=== PATIENT | female | born 1945 | race Caucasian/White ===

== ENCOUNTER → 2016-07-13 | Outpatient (CLI) | payer BC ==
[~2016-07-13] MED LIST: ALBU18002 INH; ALBU1AER9 INH; BRIM0.1S OPL; CALC1CHW57; CALC500C3 PO; CALC8.5C PO; CLR10 PO; DORZ1SOL6 OPL; MULT-240 PO; TRAV0.00 OPB; VALA500T60 PO; VGMOPS OPL; VIACTIV; ZOLE5INJ; [UNRECOGNIZED DRUG - CODE] OPL
--- NOTE | 2016-07-13 16:01 | MAMMOGRAPHY REPORT ---
BILATERAL DIGITAL SCREENING MAMMOGRAM WITH CAD: 07/13/2016 CLINICAL HISTORY: Routine screening. Patient has no complaints. TECHNIQUE: Bilateral CC, MLO, repeat left CC and right nipple in profile views were obtained. Curren t study was also evaluated with a Computer Aided Detection (CAD) system. COMPARISON: Comparison is made to exams dated: 07/09/2015 mammogram, 07/04/2014 mammogram, 06/30/2013 m ammogram, 07/13/2012 mammogram, 06/29/2012 mammogram, and 06/29/2011 mammogram - [facility] nter. BREAST COMPOSITION: There are scattered areas of fibroglandular density in both breasts. FINDINGS: There are mild vascular calcifications in the breasts. No suspicious mass, architectural d istortion or cluster of microcalcifications is seen. IMPRESSION: ACR BI-RADS CATEGORY 1: NEGATIVE There is no mammographic evidence of malignancy. A 1 year screening mammogram is recommended. The pa tient will receive written notification of the results. Approximately 10% of breast cancers are not detected with mammography. A negative mammographic report should not delay biopsy if a clinically suggestive mass is present. Steff Segundo M.D. ay/:07/13/2016 13:53:39 [facility] [employer] [employer]: Leelee VENTURA(Lory)(Jackson)([place]), [facility] letter sent: Normal 1/2 BI-RADS Code: ACR BI-RADS Category 1: Negative
== END | disposition home or self-care (01) ==
LOC: C.MAMM 10:48
PROVIDERS: ATTEND Obstetrics & Gynecology
DX: Z12.31 Encounter for screening mammogram for malignant neoplasm of breast (principal)

== ENCOUNTER → 2016-09-14 | Outpatient (CLI) | payer BC ==
[2016-09-14 13:00] LABS: BASO % 0.3 %; BASO ABS # 0.02 K/uL (0-0.2); COMPLETE YES; EOS % 1.3 %; HEMATOCRIT 44.1 % (37-47); IG% 0.1 %; LYMPH % 27.7 %; LYMPH ABS # 2.14 K/uL (1.2-3.4); MEAN CELL VOLUME 96.7 fL (80-100); MEAN CORPUSCULAR HGB CONC 33.1 g/dl (32-36); MEAN PLATELET VOLUME 10.4 fL (7.4-10.4); MONO % 8.8 %; NEUT % 61.8 %; PLATELET COUNT 207 K/uL (130-400); RED BLOOD COUNT 4.56 M/uL (4.2-5.4); WHITE BLOOD COUNT 7.73 K/uL (4.8-10.8)
[2016-09-14 13:21] LABS: BLOOD UREA NITROGEN 20 mg/dl (7-18); CALCIUM 9.9 mg/dl (8.5-10.1); CARBON DIOXIDE 29 mmol/L (21-32); CHLORIDE 104 mmol/L (98-107); CREATININE 0.93 mg/dl (0.60-1.20); GLUCOSE 88 mg/dl (70-99); POTASSIUM 4.2 mmol/L (3.5-5.1); SODIUM 140 mmol/L (136-145)
[2016-09-14 13:31] LABS: CHOLESTEROL 216 mg/dl (0-200); CHOLESTEROL/HDL RATIO 3.4; HDL CHOLESTEROL 63 mg/dl; LDL CHOLESTEROL CALCULATED 129 mg/dl; TRIGLYCERIDES 122 mg/dl (0-150); VERY LOW DENSITY LIPOPROT CALC 24 mg/dl
== END | disposition home or self-care (01) ==
LOC: C.LAB 11:58
PROVIDERS: ATTEND Internal Medicine Geriatric Medicine
DX: M81.0 Age-related osteoporosis without current pathological fracture (principal); I10 Essential (primary) hypertension; J45.909 Unspecified asthma, uncomplicated; E78.5 Hyperlipidemia, unspecified; M19.90 Unspecified osteoarthritis, unspecified site

== ENCOUNTER → 2016-10-06 | Outpatient (CLI) | payer BC | END | disposition home or self-care (01) | LOC: C.MAMM 14:07 | PROVIDERS: ATTEND Internal Medicine Geriatric Medicine | DX: M81.0 Age-related osteoporosis without current pathological fracture (principal) ==

== ENCOUNTER → 2016-11-06 | Outpatient (CLI) | payer BC ==
[~2016-11-06] MED LIST changes: -ALBU18002 INH; -VIACTIV
[2016-11-06 13:48] LABS: AST/SGOT 16 U/L (15-37); BLOOD UREA NITROGEN 21 mg/dl (7-18); BUN/CREATININE RATIO 24.8 (10-20); CALCIUM 9.2 mg/dl (8.5-10.1); CARBON DIOXIDE 31 mmol/L (21-32); CHLORIDE 106 mmol/L (98-107); CREATININE 0.84 mg/dl (0.60-1.20); GLUCOSE 81 mg/dl (70-99); POTASSIUM 4.2 mmol/L (3.5-5.1); SODIUM 141 mmol/L (136-145)
[2016-11-06 13:52] LABS: ALB/GLOB RATIO 1.1 (0.9-2); ALKALINE PHOSPHATASE 64 U/L (45-117); ALT/SGPT 20 U/L (12-78)
== END | disposition home or self-care (01) ==
LOC: C.LAB 12:14
PROVIDERS: ATTEND Internal Medicine Geriatric Medicine
DX: I10 Essential (primary) hypertension (principal)

== ENCOUNTER → 2016-11-17 | Day surgery (SDC) | payer BC ==
[~2016-11-17] VITALS: Ht 152.4 cm; Wt 45.5 kg
[~2016-11-17] MED LIST changes: +ACETAMINOPHEN 500 MG TAB PO ONE; +ACETAMINOPHEN 500 MG TAB PO SCH; +ALBU18002 INH; +VIACTIV; +ZOLEDRONIC ACID INJ 5 MG in EMPTY BAG 0 ML IV SCH
[2016-11-17 08:46] VITALS: BP 169/79; PULSE 70; TEMP 36.5; O2SAT 100; Ht 152.4 cm; Wt 45.5 kg
== END | disposition home or self-care (01) ==
LOC: C.MTU 08:31
PROVIDERS: ATTEND Internal Medicine Geriatric Medicine
DX: M81.0 Age-related osteoporosis without current pathological fracture (principal)

== ENCOUNTER → 2017-03-29 | Outpatient (CLI) | payer BC ==
[~2017-03-29] MED LIST changes: -ACETAMINOPHEN 500 MG TAB PO ONE; -ACETAMINOPHEN 500 MG TAB PO SCH; -ZOLEDRONIC ACID INJ 5 MG in EMPTY BAG 0 ML IV SCH
--- NOTE | 2017-03-29 14:58 | DIAGNOSTIC IMAGING REPORT ---
LUMBAR SPINE 5 VIEWS HISTORY: M[age] Low back [id number] COMPARISON: Lumbar spine 09/17/2011. FINDINGS: There is no fracture. 4 mm of anterolisthesis of L3 on L4 and 11 mm of anterolisthesis of L4 on L5. These have progressed. Severe disc space narrowing at L3-L4 and L4-L5. Moderate facet osteoarthritis within the lower lumbar spine. The sacrum appears intact. IMPRESSION: Progressive anterolisthesis and disc space narrowing at L3-L4 and L4-L5. No fractures within the lumbar spine. Electronically signed by: Yung Brannon M.D. 03/29/2017 2:57 PM Dictated Date/Time: 03/29/2017 2:54 PM
--- NOTE | 2017-03-29 14:59 | DIAGNOSTIC IMAGING REPORT ---
SI JOINTS 3 OR MORE VIEWS CLINICAL HISTORY: M54.5 Low back [id number] COMPARISON STUDY: No previous studies for comparison. FINDINGS: There is no evidence of SI joint fusion. There are no erosive changes. No fractures are visualized. Degenerative changes are present within the lower lumbar spine IMPRESSION: 1. No conventional radiographic evidence of sacroiliitis Electronically signed by: Sedrick Charles M.D. 03/29/2017 2:58 PM Dictated Date/Time: 03/29/2017 2:56 PM
== END | disposition home or self-care (01) ==
LOC: C.RADBC 14:13
PROVIDERS: ATTEND Internal Medicine Geriatric Medicine
DX: M54.5 Low back pain (principal)

== ENCOUNTER → 2017-04-27 | Outpatient (CLI) | payer BC | END | disposition home or self-care (01) | LOC: C.LAB1850 11:10 | PROVIDERS: ATTEND Internal Medicine Rheumatology | DX: M81.0 Age-related osteoporosis without current pathological fracture (principal); E61.8 Deficiency of other specified nutrient elements; E55.9 Vitamin D deficiency, unspecified ==

== ENCOUNTER → 2017-09-01 | Outpatient (CLI) | payer BC ==
--- NOTE | 2017-09-15 12:20 | CODING QUERY NO DIAGNOSIS ---
TREATMENT RENDERED WITHOUT A DIAGNOSIS To promote full compliance with coding requirements relating to patient care, physician participation is requested in all cases of patient monitor uncertainty. Please assist us with providing a diagnosis/symptom for the test(s) below: A diagnosis/symptom was not documented on your Order. A valid diagnosis/symptom is required to bill all insurances. Please remember that we are unable to code a diagnosis of rule out, probable, possible, questionable, or suspected. Tests that require a diagnosis: DOS: 09/01/17 * LEFT BUCCAL MUCOSA EXCISION DIAGNOSIS: Provider Signature: Date: Thank you Chrissie Miller [employer] Information Management Once completed, please kindly fax back to [phone] For questions please call [phone]
== END | disposition home or self-care (01) ==
LOC: C.PATHSPEC 14:52
PROVIDERS: ATTEND Dentist Oral and Maxillofacial Pathology
DX: D10.39 Benign neoplasm of other parts of mouth (principal)

== ENCOUNTER 2023-09-04 13:10 | Observation (INO) ==
[2023-09-04 14:07] LABS: Appearance Urine Clear (Clear); Bilirubin Urine Negative (Negative); Blood Urine Negative (Negative); Color Urine Yellow; Glucose Urine UA Negative (Negative); Ketones Urine Negative (Negative); Leukocyte Esterase Urine Negative (Negative); Nitrite Urine Negative (Negative); Protein Urine Negative (Negative); Specific Gravity Urine 1.019 (1.000-1.030); Urobilinogen Urine Negative (Negative); pH Urine 5.5 (4.5-7.5)
--- NOTE | 2023-09-04 14:08 | XRay Report ---
XR chest 1V portable HISTORY: 78 years-old Female weakness COMPARISON: 06/07/2011 TECHNIQUE: AP view of the chest FINDINGS: Calcified granulomas in the left lung. Heart is normal in size. Lungs are generally clear. No pneumot horax or pleural effusion. The bones appear grossly intact. IMPRESSION: No acute process. ACT 112: Negative or not required by law. The above report was generated using voice recognition software. It may contain grammatical, syntax o r spelling errors. Electronically signed by: Cesar Valentine M.D. 09/04/2023 2:07 PM
[2023-09-04 14:15] LABS: Basophils # (auto) 0.02 K/uL (0.00-0.20); Basophils % (auto) 0.2 %; Eosinophils # (auto) 0.01 K/uL (0.00-0.50); Eosinophils % (auto) 0.1 %; Hematocrit (blood only) 43.5 % (37.0-47.0); Hemoglobin 14.3 g/dl (12.0-16.0); Immature Granulocytes # (auto) 0.06 K/uL (0.01-0.20); Immature Granulocytes % (auto) 0.5 %; Lymphocytes # (auto) 1.33 K/uL (1.20-3.40); Mean Corpuscular Hemoglobin 31.2 pg (25.0-34.0); Mean Corpuscular Hgb Conc 32.9 g/dL (32.0-36.0); Mean Corpuscular Volume 94.8 fL (80.0-100.0); Monocytes # (auto) 0.76 K/uL (0.11-0.59); Monocytes % (auto) 6.3 %; Neutrophils # (auto) 9.88 K/uL (1.40-6.50); Neutrophils % (auto) 81.9 %; Platelet Count 227 K/uL (130-400); RDW Coefficient of Variation 12.7 % (11.5-14.5); RDW Standard Deviation 44.6 fL (36.4-46.3); Red Blood Count 4.59 M/uL (4.20-5.40); White Blood Count 12.06 K/ul (4.8-10.8)
[2023-09-04 14:26] LABS: Alanine Aminotransferase 14 U/L (7-52); Albumin Globulin Ratio 1.5 (0.9-2); Albumin Level 4.4 gm/dl (3.4-5.0); Alkaline Phosphatase 51 U/L (34-104); Anion Gap 7 (3-11); Aspartate Aminotransferase 20 U/L (13-39); BUN Creatinine Ratio 29.9 (10-20); Bilirubin,Total 0.4 mg/dl (0.2-1.0); Blood Urea Nitrogen 23 mg/dl (6-23); Calcium 9.7 mg/dl (8.6-10.3); Carbon Dioxide 28 mmol/L (21-32); Chloride 105 mmol/L (98-107); Creatinine Clr Calc Pharmacy 39.7 ml/min; Est GFR (African American) 84.5 ml/min; Est GFR (Non-African American) 72.9 ml/min; Globulin 2.9 gm/dl (2.5-4.0); Glucose 124 mg/dl (70-99(Fasting)); Magnesium 2.1 mg/dl (1.7-2.4); Sodium 140 mmol/L (136-145); Total Protein 7.3 gm/dl (6.0-8.3)
[2023-09-04 14:32] LABS: Troponin I High Sensitivity 7.9 pg/ml (0-14)
--- NOTE | 2023-09-04 14:38 | CT Scan Report ---
CT head/brain wo con CLINICAL HISTORY: 78 years-old Female with AMS. Acutely altered mental status TECHNIQUE: Multiple axial CT images of the head were obtained without contrast. A dose lowering tech nique was utilized adhering to the principles of ALARA. CT DOSE: 547.75 mGy.cm COMPARISON: None. FINDINGS: No acute intracranial hemorrhage, midline shift, intracranial mass, hydrocephalus, territorial ischem ia or abnormal extra-axial collection. Involutional changes with chronic microvascular ischemic disea se. The calvarium is intact. The paranasal sinuses, mastoid air cells, and middle ear cavities are clear . IMPRESSION: No acute intracranial abnormality. ACT 112: Negative or not required by law. The above report was generated using voice recognition software. It may contain grammatical, syntax o r spelling errors. Electronically signed by: Cesar Valentine M.D. 09/04/2023 2:35 PM
[2023-09-04 14:41] LABS: Thyroid Stimulating Hormone 1.901 uIu/ml (0.300-4.500)
[2023-09-04 15:01] LABS: Influenza A virus by PCR Negative (Neg); Influenza B virus by PCR Negative (Neg); RSV by PCR Negative (Neg); SARS CoV2 RNA(COVID-19) Ceph NEGATIVE (Negative)
[2023-09-04] MEDS: SODIUM CHLORIDE 0.9% 1,000 ML IV SCH (15:45)
--- NOTE | 2023-09-04 17:11 | History & Physical Report ---
Date of Service September 04, 2023 Assessment & Plan (1) Confusion: (2) Amnesia: (3) Carpal tunnel syndrome, right: (4) Urinary retention: (5) Dyslipidemia: (6) Gastroesophageal reflux disease: Plan 78 y/o female with PMHx of HLD, carpal tunnel syndrome, urinary retention, osteo porosis, asthma, GERD, HSV suppression, glaucoma presenting with new onset confusion: Confusion: Overall unclear etiology for presenting sx, neurologically appears intact apart from anterograde amnesia-like sx Infectious etiology largely ruled out - WBC slightly elevated at 12, but CXR, UA, respiratory viral panel all negative, patient afebrile and asymptomatic. 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 Several family members at bedside, report that patient was supposed to meet up with family to go to [facility] but seemingly forgot. Daughter called patient [address] to her home - each time, the patient had forgotten the previous phone call. When family arrived at patient's house, she appeared normal apart from the forgetfulness - did not have any asymmetric weakness, no obvious motor or sensory deficits, no facial droop. Daughter had last seen patient on 09/01, at which time she was fine. Similarly, family sent numerous texts on Wednesday and received coherent responses. Overall, unclear exactly when sx started. At present, patient states that she felt like she was in a dream-like state, improved but still present, also has difficulty recounting the events of today, even after family has detailed the sequence of events multiple times. Patient has h/o HLD, states that total cholesterol is usually slightly over 200, has never been started on medication. Similarly, BP elevated in ED, though patient and family report well-established white coat HTN - home readings generally <140/90, patient does not take medication. Denies h/o diabetes. Denies cardiac hx or h/o arrhythmias. Denies h/o prior stroke. Patient is a former smoker but states that she quit close to 50 years ago. Presently, denies recent infection, denies fever/chills, denies SOB/CP, denies ALCAZAR/changes in vision. ED Course: CT head w/o contrast negative WBC 12, CXR negative, UA negative, respiratory viral panel negative Allergies Allergy/AdvReac Type Severity Reaction Status Date / Time chloramphenicol Allergy Intermediate swelling Verified 09/04/23 15:37 epinephrine Allergy Intermediate "makes me Verified 09/04/23 15:37 even more uptight, heart racing" fluticasone Allergy Intermediate "eyes got Verified 09/04/23 15:37 funny" salmeterol Allergy Intermediate "eyes got Verified 09/04/23 15:37 funny" Sulfa (Sulfonamide Allergy Intermediate yeast Verified 09/04/23 15:37 Antibiotics) infection latex Allergy Unknown Unknown Verified 09/04/23 15:37 pred forte AdvReac Unknown Unknown Uncoded 09/04/23 15:37 Home Medications Medication Instructions Recorded Confirmed Type calcium carbonate 500 mg-vitamin 1 tab PO QAM 11/14/18 09/04/23 History D3 2.5 mcg (100 unit) chewable tablet travoprost 0.004 % eye drops 1 drops OPB QPM 11/14/18 09/04/23 History valacyclovir 500 mg tablet 500 mg PO QAM 11/14/18 09/04/23 History Juice Plus 1 tab PO QPM 08/25/19 09/04/23 History Thera Tears 1 drp OPR BID PRN Dry Eyes 11/01/20 09/04/23 History calcium carbonate (Tums) 200 mg PO HS Acid Reflux 11/01/20 09/04/23 History fluorometholone 0.1 % eye 1 drp OPL QAM 11/01/20 09/04/23 History drops,suspension acetaminophen 500 mg tablet 500 mg PO HS 06/12/21 09/04/23 History (Acetaminophen Extra Strength) artificial tears(hypromellose) 0.3 1 drp ophthalmic (eye) TID PRN Dry 06/12/21 09/04/23 History % eye gel (Systane Gel) Eyes famotidine 20 mg tablet 20 mg PO QPM #120 tabs 02/09/23 09/04/23 Rx brimonidine 0.1 % eye drops 1 drp OPL [facility] 09/04/23 09/04/23 History (Alphagan P) Past Med/Surg History Problem List (Updated 09/04/23 @ 17:52 by Abhinav Weber DO) Amnesia Confusion Carpal tunnel syndrome, right Difficulty urinating Microscopic hematuria Urinary symptom or sign Urge incontinence Urinary retention Hypertension (Acute) Dyslipidemia (Acute) Osteoporosis with fracture (Acute) Followed by Dr. Beltran, Last Dexa Gastroesophageal reflux disease (Acute) Asthma (Acute) inhaler prn Medical History History of colon polyps Osteoarthritis Basal cell carcinoma of upper lip Blindness of left eye History of Mohs micrographic surgery for skin cancer Asthma Dyslipidemia Gastroesophageal reflux disease Glaucoma Hypertension Osteoporosis with fracture Vitamin D deficiency Surgical History History of left breast biopsy History of colonoscopy with polypectomy (~10/2019) History of oral surgery History of wisdom tooth extraction History of eye surgery History of left cataract extraction History of automated lamellar keratoplasty History of tooth extraction History of tonsillectomy and adenoidectomy Family History Mother Pancreatic cancer Father Stomach cancer Aunt Breast cancer Other No family history of adverse response to anesthesia Denies family history of Ovarian cancer Prostate cancer Myocardial infarction Colorectal cancer Social History Smoking Status: Former smoker Tobacco Type: Cigarettes Age Started Using Tobacco: 14; Age Quit Using Tobacco: 28; packs per day: 1; Second Hand Exposure: No (father smoked); Do You Dip or Chew Tobacco: No; Hx Alcohol Use: No Hx Substance Use: No Preferred Language: Japanese Communication Ability: Effective Visual Impairment: Limited Hearing Ability: Normal 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 Beliefs That Will Affect Care: None marital status: / Current Living Situation: Alone current occupational status: retired How many Children do You have: 2 Feels Safe at Home: Yes Childhood Exposure to Second-Hand Smoke: Yes caffeine: Yes (drinks coffee in mornings and sometimes tea ) Dental Care, Regularly: Yes Physical Activity Frequency: 1-2 Times per Week Physical Activity Frequency Comment: walks when she can Seatbelt Use: always Sunscreen Use: Yes Assistive Devices: Denture - Upper, Denture - Lower and Glasses Review of Systems Review of Systems: as per HPI Physical Exam Physical Exam: General: Alert and oriented. No acute distress Cardiac: Regular rate and rhythm, no murmurs appreciated Respiratory: Lungs clear to auscultation bilaterally, No increased work of breathing Abdominal: Soft, non-tender, non-distended. Bowel sounds present. Extremities: No lower extremity edema, calves non-tender bilaterally Neuro: AOx3, CN II-XII grossly intact, sensation and strength preserved and symmetrical bilaterally, speech comprehension and articulation WNL, only difficulty is recounting the events of the day leading up to admission. Remote memory preserved. Results & Data Results & Data Vital Signs (Past 12 Hours) Vital Signs Temp Pulse Pulse Resp BP BP Pulse Ox 09/04/23 16:36 87 19 98 09/04/23 16:30 175/102 H 09/04/23 16:03 83 22 97 09/04/23 16:00 163/98 H 09/04/23 15:54 79 22 146/89 H 97 09/04/23 14:15 78 18 141/83 H 98 09/04/23 14:08 80 18 98 09/04/23 14:07 09/04/23 13:46 90 09/04/23 13:20 36.6 C 99 H 18 169/77 H 98 O2 Del Method O2 Flow Rate FiO2 09/04/23 16:36 Room Air 09/04/23 16:30 09/04/23 16:03 Room Air 09/04/23 16:00 09/04/23 15:54 Room Air 09/04/23 14:15 Room Air 09/04/23 14:08 Room Air 09/04/23 14:07 Room Air 0 98 09/04/23 13:46 09/04/23 13:20 Room Air Supervising Physician Co-Signing Physician Notes Attending Physician Supervision Note: I independently interviewed and examined the patient and verified the guardado history and physical, reviewed labs and image studies and agree with findings and care plan noted above. Period of amnesia this am. Has h/o hypertensive responses in doctors office. BP in ED 170s. Exam normal in ED. Negative work up so far in ED. Will evaluate further with MRI, CTA head and neck, echo, TSH, b12, -Allow BP to come down slowly. -Reassess in am. Resident Activity Tracking Resident Involvement: Resident Care Provided Care Provided: Adult [facility]
[2023-09-04] MEDS: OPTIRAY 320 125ml IV ONE (18:01)
--- NOTE | 2023-09-04 18:18 | CT Scan Report ---
CT angio head w con, CT angio neck with con CLINICAL HISTORY: 78 years-old Female with stroke r/o. Acute stroke like symptoms COMPARISON STUDY: Head CT same day TECHNIQUE: Following the IV administration of 118 cc of Optiray, CT angiogram of the head and neck wa s performed from the skull base to the vertex. Images are reviewed in the axial, sagittal, and arboleda l planes. 3-D MIPS images are created and assessed. IV contrast was administered without complication . All measurements were obtained according to NASCET criteria. A dose lowering technique was utilized adhering to the principles of ALARA. CT DOSE: 371.88 mGy.cm FINDINGS: CT ANGIOGRAM OF THE HEAD AND NECK: Patent common and internal carotid arteries. The bilateral anterior and middle cerebral arteries are also patent. The vertebrobasilar system and posterior cerebral arteries are widely patent. There is n o aneurysm, high-grade stenosis, or proximal branch occlusion identified. Dural sinuses appear patent . Biapical pleural-parenchymal scarring. Pulmonary emphysema. No pneumothorax. Calcified granuloma of t he left upper lobe. Heterogeneous thyroid. Degenerative changes of the spine. IMPRESSION: Unremarkable CTA of the head and neck ACT 112: Negative or not required by law. The above report was generated using voice recognition software. It may contain grammatical, syntax o r spelling errors. Electronically signed by: Cesar Valentine M.D. 09/04/2023 6:15 PM
[2023-09-04] MEDS ORDERED: POLYETHYLENE (MIRALAX) 17 GM PACK PO PRN (18:42)
[2023-09-04] MEDS ORDERED: ALUMINUM/MAGNESIUM SUSP 30 ML UDC PO PRN (18:42)
[2023-09-04] MEDS ORDERED: MELATONIN 3 MG TAB PO PRN (18:42)
[2023-09-04] MEDS ORDERED: ARTIFICIAL TEARS OP PRN (18:49)
--- NOTE | 2023-09-04 19:01 | Magnetic Resonance Report ---
MR brain wo con HISTORY: 78 years-old Female stroke r/o acute strokelike symptoms COMPARISON: Head CT of same day TECHNIQUE: Multiplanar multisequence MRI of the brain was obtained without IV contrast. FINDINGS: No restricted diffusion to suggest acute or subacute infarct. Midline structures appear unremarkable. Degenerative changes of the imaged cervical spine. No acute intracranial hemorrhage, midline shift, abnormal extra-axial collection, hydrocephalus or intra-axial mass. Mildly motion degraded exam. Invo lutional changes with moderate T2/FLAIR hyperintense foci throughout the white matter. Cerebral venous sinuses and major arterial flow voids appear patent. Skull, orbits and soft tissues a re unremarkable. Left-sided lens repair. Mastoid air cells are clear. IMPRESSION: 1. No acute intracranial abnormality. No acute or subacute infarct. 2. Involutional changes with chronic microvascular ischemic disease. ACT 112: Negative or not required by law. The above report was generated using voice recognition software. It may contain grammatical, syntax o r spelling errors. Electronically signed by: Cesar Valentine M.D. 09/04/2023 6:58 PM
--- NOTE | 2023-09-04 20:30 | Electrocardiogram Report ---
Test Reason : Blood Pressure : / mmHG Vent. Rate : 085 BPM Atrial Rate : 085 BPM P-R Int : 114 ms QRS Dur : 082 ms QT Int : 358 ms P-R-T Axes : 069 -55 064 degrees QTc Int : 426 ms Normal sinus rhythm Possible Left atrial enlargement Left anterior fascicular block Abnormal ECG When compared with ECG of 07-JUN-2011 22:42, No significant change was found Confirmed by Mike Monroy ([id number]) on 09/04/2023 8:30:19 PM Referred By: REFERRED SELF Confirmed By:Mike Monroy
[2023-09-04] MEDS: TRAVOPROST Z 0.004% OPH SOLN 2.5 ML BTL OPB SCH (21:00)
[2023-09-04] MEDS ORDERED: NON-FORMULARY PATIENT'S OWN MED SCH (21:00)
[2023-09-04] MEDS: FAMOTIDINE 20 MG TAB PO SCH (21:00)
[2023-09-04] MEDS: BRIMONIDINE TAR OPL SCH (21:00)
[2023-09-04 23:16] LABS: C Reactive Protein < 0.50 mg/dl (0-0.5)
[2023-09-05 07:30] LABS: Estimated Average Glucose 117 mg/dl; Hemoglobin A1C 5.7 % (4.5-5.6)
[2023-09-05 07:33] LABS: Hematocrit (blood only) 43.5 % (37.0-47.0); Hemoglobin 14.3 g/dl (12.0-16.0); Mean Corpuscular Hemoglobin 31.1 pg (25.0-34.0); Mean Corpuscular Hgb Conc 32.9 g/dL (32.0-36.0); Mean Corpuscular Volume 94.6 fL (80.0-100.0); Mean Platelet Volume 10.1 fL (9.4-12.4); Platelet Count 220 K/uL (130-400); RDW Coefficient of Variation 12.9 % (11.5-14.5); RDW Standard Deviation 44.7 fL (36.4-46.3); White Blood Count 8.48 K/ul (4.8-10.8)
[2023-09-05] MEDS: valACYclovir HCL 500 MG TABLET PO SCH (08:49)
[2023-09-05] MEDS: ENOXAPARIN INJ 40 MG/0.4 ML SYR SQ SCH (08:50)
[2023-09-05] MEDS: OPTH OPL SCH (08:50)
[2023-09-05] MEDS: FLUOROMETHOLONE 0.1% OPL SCH (08:50)
[2023-09-05] MEDS ORDERED: NON-FORMULARY PATIENT'S OWN MED SCH (09:00)
--- NOTE | 2023-09-05 09:30 | Emergency Department Note ---
Impression & Plan Acute confusion, Memory changes ED Provider Note CHIEF COMPLAINT:AMS HISTORY OF PRESENT ILLNESS: This 78 yo female patient with PMH of UTI, dyslipidemia, osteoporosis, GERD and asthma presents to the emergency department with complaints of confusion. According to the patient's daughter, she was supposed to come to her home this morning at around 11 AM. They had plans to go to a local amusement park with family for a picnic. When the patient did not arrive, she called the patient who had no recollection of their plans. She stated she felt as though she was "in another world." Daughter drove to the patient's home and called her several times along the way. She was not able to remember one conversation to the other. Patient was uncertain if she had eaten or taken her medication's this morning. She denies any falls or head injuries. She denies any recent illnesses including urinary symptoms. REVIEW OF SYSTEMS: A review of systems was performed with positives and pertinent negatives listed in the history of present illness. 10 systems were reviewed and are otherwise negative. ALLERGIES: see below MEDICATIONS: see below PMH: see below SOCIAL HISTORY: see below DDx: TIA, seizure, stroke, infectious ideology, metabolic encephalopathy, toxic logic effect among others. PHYSICAL EXAM: Vital signs reviewed. General: Well-appearing 78 yo female, in no significant distress. HEENT: No scleral icterus, PERRLA, neck supple. Atraumatic. MMM. Cardiovascular: Regular rate and rhythm, no extra sounds. Pulmonary: Clear to auscultation bilaterally, normal work of breathing. Abdomen: Soft, nontender, nondistended, positive bowel sounds. Musculoskeletal: Atraumatic, no peripheral edema. Neurologic: Patient awake alert and oriented x 3, speech is clear. Follows commands, equals strengthen all four extremities. Negative pronator drift, intact finger to nose. 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 IV access was obtained in laboratory drawn. The patient was placed on the computer systems security administrator noted to be in a normal sinus rhythm. Patient's physical exam findings are reassuring, there is no stroke deficit at this time. The patient symptoms seem to be more of a global effect as opposed to neurologic process. Laboratory work reveals a slight ptosis at 12, UA is negative. Head CT is negative. EKG reveals no acute ischemic change. I suspect the patient may have suffered a TIA. Patient's case was discussed with the hospitalist service, who has agreed to evaluate the patient for admission and further management. MONITORING: An order for cardiac monitoring was placed and the patient is noted to be in a NSR at 83 beats per minute. RADIOLOGY: chest x-ray to my interpretation reveals no evidence of focal consolidation or failure. Otherwise referred to radiologist over read. Head CT per radiology is negative for acute intracranial process. EKG: to my interpretation reveals normal sinus rhythm 85 bpm. Left atrial enlargement, left interior fascicular, normal ST segments. No PVC, PVC. QTC 426 DISPOSITION: admission Past Med/Surg History Problem List (Updated 09/05/23 @ 09:43 by Judy Slater MD) Memory changes (Acute) Acute confusion (Acute) Amnesia Confusion Carpal tunnel syndrome, right Difficulty urinating Microscopic hematuria Urinary symptom or sign Urge incontinence Urinary retention Hypertension (Acute) Dyslipidemia (Acute) Osteoporosis with fracture (Acute) Followed by Dr. Beltran, Last Dexa Gastroesophageal reflux disease (Acute) Asthma (Acute) inhaler prn Medical History History of colon polyps Osteoarthritis Basal cell carcinoma of upper lip Blindness of left eye History of Mohs micrographic surgery for skin cancer Glaucoma left eye Vitamin D deficiency Surgical History History of left breast biopsy benign History of colonoscopy with polypectomy (~10/2019) repeat 5 yrs History of oral surgery dental implant History of wisdom tooth extraction History of eye surgery calcium deposit removal x3 left eye History of left cataract extraction History of automated lamellar keratoplasty ? pt states she cant remember but has had many left eye sx History of tooth extraction History of tonsillectomy and adenoidectomy Family History Mother Pancreatic cancer Father Stomach cancer Aunt Breast cancer Other No family history of adverse response to anesthesia Denies family history of Ovarian cancer Prostate cancer Myocardial infarction Colorectal cancer Social History Smoking Status: Former smoker Tobacco Type: Cigarettes Age Started Using Tobacco: 14; Age Quit Using Tobacco: 28; packs per day: 1; Second Hand Exposure: No (father smoked); Do You Dip or Chew Tobacco: No; Hx Alcohol Use: No Hx Substance Use: No Preferred Language: Swiss Communication Ability: Effective Visual Impairment: Limited Hearing Ability: Normal Side Show Entertainer Required: No Beliefs That Will Affect Care: None marital status: / Current Living Situation: Alone current occupational status: retired How many Children do You have: 2 Feels Safe at Home: Yes Safety Concerns: Feels Safe At This Time Childhood Exposure to Second-Hand Smoke: Yes caffeine: Yes (drinks coffee in mornings and sometimes tea ) Dental Care, Regularly: Yes Physical Activity Frequency: 1-2 Times per Week Physical Activity Frequency Comment: walks when she can Seatbelt Use: always Sunscreen Use: Yes Assistive Devices: Denture - Upper, Denture - Lower and Glasses Allergies Allergies Allergy/AdvReac Type Severity Reaction Status Date / Time chloramphenicol Allergy Intermediate swelling Verified 09/04/23 15:37 epinephrine Allergy Intermediate "makes me Verified 09/04/23 15:37 even more uptight, heart racing" fluticasone Allergy Intermediate "eyes got Verified 09/04/23 15:37 funny" salmeterol Allergy Intermediate "eyes got Verified 09/04/23 15:37 funny" Sulfa (Sulfonamide Allergy Intermediate yeast Verified 09/04/23 15:37 Antibiotics) infection latex Allergy Unknown Unknown Verified 09/04/23 15:37 pred forte AdvReac Unknown Unknown Uncoded 09/04/23 15:37 Home Meds Home Medications Medication Instructions Recorded Confirmed calcium carbonate 500 mg-vitamin 1 tab PO QAM 11/14/18 09/04/23 D3 2.5 mcg (100 unit) chewable tablet travoprost 0.004 % eye drops 1 drops OPB QPM 11/14/18 09/04/23 valacyclovir 500 mg tablet 500 mg PO QAM 11/14/18 09/04/23 Juice Plus 1 tab PO QPM 08/25/19 09/04/23 Thera Tears 1 drp OPR BID PRN Dry Eyes 11/01/20 09/04/23 calcium carbonate (Tums) 200 mg PO HS Acid Reflux 11/01/20 09/04/23 fluorometholone 0.1 % eye 1 drp OPL QAM 11/01/20 09/04/23 drops,suspension acetaminophen 500 mg tablet 500 mg PO HS 06/12/21 09/04/23 (Acetaminophen Extra Strength) artificial tears(hypromellose) 0.3 1 drp ophthalmic (eye) TID PRN Dry 06/12/21 09/04/23 % eye gel (Systane Gel) Eyes brimonidine 0.1 % eye drops 1 drp OPL AMHS 09/04/23 09/04/23 (Alphagan P) Previous Rx's Medication Instructions Recorded famotidine 20 mg tablet 20 mg PO QPM #120 tabs 02/09/23 Results & Data (ED) Vital Signs Vital Signs - 24 hr 09/04/23 13:20 09/04/23 13:46 09/04/23 14:07 Temperature 36.6 C Temperature Source Temporal Artery Scan Pulse Rate 99 H 90 Pulse Rate [Apical] Pulse Rate from SpO2 Sensor Pulse Rhythm Pulse Rhythm [Apical] Pulse Strength [Apical] Respiratory Rate 18 Respiratory Effort / Characteristics Respiratory Depth Respiratory Pattern Blood Pressure 169/77 H Blood Pressure [Right Arm] Blood Pressure Mean 107 Blood Pressure Mean [Right Arm] Blood Pressure Position [Right Arm] Pulse Oximetry 98 Oxygen Delivery Method Room Air Room Air Oxygen Flow Rate 0 Fraction of Inspired Oxygen 98 Sepsis Recent Fever Within 48 Hours No Sepsis New/Unexplained Change in Mental Status No Sepsis Action Taken by Nursing No Action Required 09/04/23 14:08 09/04/23 14:15 09/04/23 15:54 Temperature Temperature Source Pulse Rate 80 79 Pulse Rate [Apical] 78 Pulse Rate from SpO2 Sensor 79 Pulse Rhythm Regular Pulse Rhythm [Apical] Regular Pulse Strength [Apical] Normal Respiratory Rate 18 18 22 Respiratory Effort / Characteristics Non-Labored Spontaneous Respiratory Depth Normal Respiratory Pattern Regular Blood Pressure 146/89 H Blood Pressure [Right Arm] 141/83 H Blood Pressure Mean 108 Blood Pressure Mean [Right Arm] 102 Blood Pressure Position [Right Arm] Sitting Pulse Oximetry 98 98 97 Oxygen Delivery Method Room Air Room Air Room Air Oxygen Flow Rate Fraction of Inspired Oxygen Sepsis Recent Fever Within 48 Hours Sepsis New/Unexplained Change in Mental Status Sepsis Action Taken by Nursing 09/04/23 16:00 09/04/23 16:03 09/04/23 16:30 Temperature Temperature Source Pulse Rate 83 Pulse Rate [Apical] Pulse Rate from SpO2 Sensor 84 Pulse Rhythm Pulse Rhythm [Apical] Pulse Strength [Apical] Respiratory Rate 22 Respiratory Effort / Characteristics Respiratory Depth Respiratory Pattern Blood Pressure 163/98 H 175/102 H Blood Pressure [Right Arm] Blood Pressure Mean 131 121 Blood Pressure Mean [Right Arm] Blood Pressure Position [Right Arm] Pulse Oximetry 97 Oxygen Delivery Method Room Air Oxygen Flow Rate Fraction of Inspired Oxygen Sepsis Recent Fever Within 48 Hours Sepsis New/Unexplained Change in Mental Status Sepsis Action Taken by Nursing 09/04/23 16:36 09/04/23 17:30 Temperature Temperature Source Pulse Rate 87 Pulse Rate [Apical] Pulse Rate from SpO2 Sensor 88 Pulse Rhythm Pulse Rhythm [Apical] Pulse Strength [Apical] Respiratory Rate 19 Respiratory Effort / Characteristics Respiratory Depth Respiratory Pattern Blood Pressure 158/86 H Blood Pressure [Right Arm] Blood Pressure Mean 120 Blood Pressure Mean [Right Arm] Blood Pressure Position [Right Arm] Pulse Oximetry 98 Oxygen Delivery Method Room Air Oxygen Flow Rate Fraction of Inspired Oxygen Sepsis Recent Fever Within 48 Hours Sepsis New/Unexplained Change in Mental Status Sepsis Action Taken by [place] Medications Current Medication List: was personally reviewed by me Laboratory Data Attestation: I reviewed the patient's lab results. 09/05/23 06:17 09/04/23 13:53 Lab Results 09/04/23 Range/Units 13:53 WBC 12.06 H (4.8-10.8) K/ul RBC 4.59 (4.20-5.40) M/uL Hgb 14.3 (12.0-16.0) g/dl Hct 43.5 (37.0-47.0) % MCV 94.8 (80.0-100.0) fL MCH 31.2 (25.0-34.0) pg MCHC 32.9 (32.0-36.0) g/dL RDW Std Deviation 44.6 (36.4-46.3) fL RDW Coeff of Lorne 12.7 (11.5-14.5) % Plt Count 227 (130-400) K/uL MPV 10.0 (9.4-12.4) fL Immature Gran % (Auto) 0.5 % Neut % (Auto) 81.9 % Lymph % (Auto) 11.0 % [place] % (Auto) 6.3 % Eos % (Auto) 0.1 % Baso % (Auto) 0.2 % Neut # (Auto) 9.88 H (1.40-6.50) K/uL Lymph # (Auto) 1.33 (1.20-3.40) K/uL [place] # (Auto) 0.76 H (0.11-0.59) K/uL Eos # (Auto) 0.01 (0.00-0.50) K/uL Baso # (Auto) 0.02 (0.00-0.20) K/uL Immature Gran # (Auto) 0.06 (0.01-0.20) K/uL ESR 13 (0-30) mm/hr Sodium 140 (136-145) mmol/L Potassium 4.0 (3.5-5.1) mmol/L Chloride 105 (98-107) mmol/L Carbon Dioxide 28 (21-32) mmol/L Anion Gap 7 (3-11) BUN 23 (6-23) mg/dl Creatinine 0.77 (0.6-1.2) mg/dl Est Cr Clr Drug Dosing 39.7 ml/min Est GFR ( Amer) 84.5 ml/min Est GFR (Non-Af Amer) 72.9 ml/min BUN/Creatinine Ratio 29.9 H (10-20) Glucose 124 H (70-99(Fasting)) mg/dl Calcium 9.7 (8.6-10.3) mg/dl Magnesium 2.1 (1.7-2.4) mg/dl Total Bilirubin 0.4 (0.2-1.0) mg/dl AST 20 (13-39) U/L ALT 14 (7-52) U/L Alkaline Phosphatase 51 (34-104) U/L Troponin I High Sens 7.9 (0-14) pg/ml C-Reactive Protein < 0.50 (0-0.5) mg/dl Total Protein 7.3 (6.0-8.3) gm/dl Albumin 4.4 (3.4-5.0) gm/dl Globulin 2.9 (2.5-4.0) gm/dl Albumin/Globulin Ratio 1.5 (0.9-2) Vitamin B12 266 (180-914) pg/ml TSH 1.901 (0.300-4.500) uIu/ml Urine Color Yellow Urine Appearance Clear (Clear) Urine pH 5.5 (4.5-7.5) Ur Specific Altha 1.019 (1.000-1.030) Urine Protein Negative (Negative) Urine Glucose (UA) Negative (Negative) Urine Ketones Negative (Negative) Urine Blood Negative (Negative) Urine Nitrite Negative (Negative) Urine Bilirubin Negative (Negative) Urine Urobilinogen Negative (Negative) Ur Leukocyte Esterase Negative (Negative) SARS-CoV-2 (PCR) NEGATIVE (Negative) Influenza Type A (PCR) Negative (Neg) Influenza Type B (PCR) Negative (Neg) RSV (RT-PCR) Negative (Neg) Administered Medications Brimonidine Tartrate (Brimonidine Tar 0.1% 75 Drops/5 Ml Btl [Patient Own Med]) 1 drops OPL BID JASEN Stop: 10/04/23 20:59 Last Admin: 09/05/23 08:49 Dose: 1 drops Documented By: Admin: 09/04/23 21:00 Dose: 1 drops Documented By: RAISA Enoxaparin Sodium (Enoxaparin Inj 40 Mg/0.4 Ml Syr) 40 mg SQ QAM JASEN Stop: 10/05/23 08:59 Last Admin: 09/05/23 08:50 Dose: 40 mg Documented By: ELIAS Famotidine (Famotidine 20 Mg Tab) 20 mg PO QPM JASEN Stop: 10/04/23 20:59 Last Admin: 09/04/23 21:00 Dose: 20 mg Documented By: RAISA Fluorometholone 0.1% Opth [Patient's Own Med] 1 each OPL QAM JASEN Stop: 10/05/23 08:59 Last Admin: 09/05/23 08:50 Dose: 1 drops Documented By: ELIAS Travoprost (Travoprost Z 0.004% Oph Soln 2.5 Ml Btl) 1 drops OPB QPM JASEN Stop: 10/04/23 20:59 Last Admin: 09/04/23 21:00 Dose: 1 drops Documented By: RAISA Valacyclovir HCl (Valacyclovir Hcl 500 Mg Tablet) 500 mg PO QAM JASEN Stop: 10/05/23 08:59 Last Admin: 09/05/23 08:49 Dose: 500 mg Documented By: ELIAS Discontinued Medications Sodium Chloride (Nss) 1,000 mls @ 125 mls/hr IV .Q8H JASEN Stop: 09/04/23 21:29 Last Infusion: 09/04/23 21:37 Dose: Infused Documented By: Admin: 09/04/23 15:45 Dose: 125 mls/hr Documented By: RAISA Ioversol (Optiray 320 125ml) 118 ml IV ONCE ONE Stop: 09/04/23 18:01 Last Admin: 09/04/23 18:01 Dose: 118 ml Documented By: STAR Imaging Data Radiologist's Impression: Chest X-Ray 09/04/23 13:27 XR chest 1V portable HISTORY: 78 years-old Female weakness COMPARISON: 06/07/2011 TECHNIQUE: AP view of the chest FINDINGS: Calcified granulomas in the left lung. Heart is normal in size. Lungs are generally clear. No pneumothorax or pleural effusion. The bones appear grossly intact. IMPRESSION: No acute process. ACT 112: Negative or not required by law. The above report was generated using voice recognition software. It may contain grammatical, syntax or spelling errors. Electronically signed by: Cesar Valentine M.D. 09/04/2023 2:[address] 09/04/23 13:28 CT head/brain wo con CLINICAL HISTORY: 78 years-old Female with AMS. Acutely altered mental status TECHNIQUE: Multiple axial CT images of the head were obtained without contrast. A dose lowering technique was utilized adhering to the principles of ALARA. CT DOSE: 547.75 mGy.cm COMPARISON: None. FINDINGS: No acute intracranial hemorrhage, midline shift, intracranial mass, hydrocephalus, territorial ischemia or abnormal extra-axial collection. Involutional changes with chronic microvascular ischemic disease. The calvarium is intact. The paranasal sinuses, mastoid air cells, and middle ear cavities are clear. IMPRESSION: No acute intracranial abnormality. ACT 112: Negative or not required by law. The above report was generated using voice recognition software. It may contain grammatical, syntax or spelling errors. Electronically signed by: Cesar Valentine M.D. 09/04/2023 2:35 PM Discharge Plan Visit Data Chief Complaint: Confusion Stated Complaint: CONFUSION, HIGH BP ED Provider: Judy Slater Discharge Problem: Acute confusion, Memory changes Patient Disposition: Admitted As Inpatient Discharge Instructions Interventions: ED Discharge Assessment Last Done: 09/05/23 00:45
[2023-09-05] MEDS: ACETAMINOPHEN 325 MG TAB PO PRN (10:09)
--- NOTE | 2023-09-05 11:50 | XCELERA ---
[id number] [id number]
--- NOTE | 2023-09-05 13:54 | Discharge Summary ---
Date of Service September 05, 2023 Admission HPI Per Admitting Provider 78 y/o female with PMHx of HLD, carpal tunnel syndrome, urinary retention, osteoporosis, asthma, GERD presenting with new onset confusion that started this morning. Several family members at bedside, report that patient was supposed to meet up with family to go to [facility] [employer] but seemingly forgot. Daughter called patient [address] to her home - each time, the patient had forgotten the previous phone call. When family arrived at patient's house, she appeared normal apart from the forgetfulness - did not have any asymmetric weakness, no obvious motor or sensory deficits, no facial droop. Daughter had last seen patient on 09/01, at which time she was fine. Similarly, family sent numerous texts on Wednesday and received coherent responses. Overall, unclear exactly when sx started. At present, patient states that she felt like she was in a dream-like state, improved but still present, also has difficulty recounting the events of today, even after family has detailed the sequence of events multiple times. Patient has h/o HLD, states that total cholesterol is usually slightly over 200, has never been started on medication. Similarly, BP elevated in ED, though patient and family report well-established white coat HTN - home readings generally <140/90, patient does not take medication. Denies h/o diabetes. Denies cardiac hx or h/o arrhythmias. Denies h/o prior stroke. Patient is a former smoker but states that she quit close to 50 years ago. Presently, denies recent infection, denies fever/chills, denies SOB/CP, denies ALCAZAR/changes in vision. ED Course: CT head w/o contrast negative WBC 12, CXR negative, UA negative, respiratory viral panel negative Admission Exam Per Admitting Provider General: Alert and oriented. No acute distress Cardiac: Regular rate and rhythm, no murmurs appreciated Respiratory: Lungs clear to auscultation bilaterally, No increased work of breathing Abdominal: Soft, non-tender, non-distended. Bowel sounds present. Extremities: No lower extremity edema, calves non-tender bilaterally Neuro: AOx3, CN II-XII grossly intact, sensation and strength preserved and symmetrical bilaterally, speech comprehension and articulation WNL, only difficulty is recounting the events of the day leading up to admission. Remote memory preserved. Principal Diagnosis transient global amnesia Discharge Exam General: Alert and oriented. No acute distress Cardiac: Regular rate and rhythm, no murmurs appreciated Respiratory: Lungs clear to auscultation bilaterally, No increased work of breathing Abdominal: Soft, non-tender, non-distended. Bowel sounds present. Extremities: No lower extremity edema, calves non-tender bilaterally Neuro: AOx3, CN II-XII grossly intact, sensation and strength preserved and symmetrical bilaterally, speech comprehension and articulation WNL, short term memoy significantly improved - able to accurately recount the events of last night and this morning Discharge Data Allergies Allergy/AdvReac Type Severity Reaction Status Date / Time chloramphenicol Allergy Intermediate swelling Verified 09/04/23 15:37 epinephrine Allergy Intermediate "makes me Verified 09/04/23 15:37 even more uptight, heart racing" fluticasone Allergy Intermediate "eyes got Verified 09/04/23 15:37 funny" salmeterol Allergy Intermediate "eyes got Verified 09/04/23 15:37 funny" Sulfa (Sulfonamide Allergy Intermediate yeast Verified 09/04/23 15:37 Antibiotics) infection latex Allergy Unknown Unknown Verified 09/04/23 15:37 pred forte AdvReac Unknown Unknown Uncoded 09/04/23 15:37 Consultations 09/04/23 15:42 ED Decision to Admit Stat Ordered Studies Head CT 09/04/23 13:28 CT head/brain wo con CLINICAL HISTORY: 78 years-old Female with AMS. Acutely altered mental status TECHNIQUE: Multiple axial CT images of the head were obtained without contrast. A dose lowering technique was utilized adhering to the principles of ALARA. CT DOSE: 547.75 mGy.cm COMPARISON: None. FINDINGS: No acute intracranial hemorrhage, midline shift, intracranial mass, hydrocephalus, territorial ischemia or abnormal extra-axial collection. Involutional changes with chronic microvascular ischemic disease. The calvarium is intact. The paranasal sinuses, mastoid air cells, and middle ear cavities are clear. IMPRESSION: No acute intracranial abnormality. ACT 112: Negative or not required by law. The above report was generated using voice recognition software. It may contain grammatical, syntax or spelling errors. Electronically signed by: Cesar Valentine M.D. 09/04/2023 2:35 PM Brain MRI 09/04/23 17:36 MR brain wo con HISTORY: 78 years-old Female stroke r/o acute strokelike symptoms COMPARISON: Head CT of same day TECHNIQUE: Multiplanar multisequence MRI of the brain was obtained without IV contrast. FINDINGS: No restricted diffusion to suggest acute or subacute infarct. Midline structures appear unremarkable. Degenerative changes of the imaged cervical spine. No acute intracranial hemorrhage, midline shift, abnormal extra-axial collection, hydrocephalus or intra-axial mass. Mildly motion degraded exam. Involutional ch anges with moderate T2/FLAIR hyperintense foci throughout the white matter. Cerebral venous sinuses and major arterial flow voids appear patent. Skull, orbits and soft tissues are unremarkable. Left-sided lens repair. Mastoid air cells are clear. IMPRESSION: 1. No acute intracranial abnormality. No acute or subacute infarct. 2. Involutional changes with chronic microvascular ischemic disease. ACT 112: Negative or not required by law. The above report was generated using voice recognition software. It may contain grammatical, syntax or spelling errors. Electronically signed by: Cesar Valentine M.D. 09/04/2023 6:58 PM Head CTA 09/04/23 17:36 CT angio head w con, CT angio neck with con CLINICAL HISTORY: 78 years-old Female with stroke r/o. Acute stroke like symptoms COMPARISON STUDY: Head CT same day TECHNIQUE: Following the IV administration of 118 cc of Optiray, CT angiogram of the head and neck was performed from the skull base to the vertex. Images are reviewed in the axial, sagittal, and coronal planes. 3-D MIPS images are created and assessed. IV contrast was administered without complication. All measurements were obtained according to NASCET criteria. A dose lowering technique was utilized adhering to the principles of ALARA. CT DOSE: 371.88 mGy.cm FINDINGS: CT ANGIOGRAM OF THE HEAD AND NECK: Patent common and internal carotid arteries. The bilateral anterior and middle cerebral arteries are also patent. The vertebrobasilar system and posterior cerebral arteries are widely patent. There is no aneurysm, high-grade stenosis, or proximal branch occlusion identified. Dural sinuses appear patent. Biapical pleural-parenchymal scarring. Pulmonary emphysema. No pneumothorax. Calcified granuloma of the left upper lobe. Heterogeneous thyroid. Degenerative changes of the spine. IMPRESSION: Unremarkable CTA of the head and neck ACT 112: Negative or not required by law. The above report was generated using voice recognition software. It may contain grammatical, syntax or spelling errors. Electronically signed by: Cesar Valentine M.D. 09/04/2023 6:15 PM Neck CTA 09/04/23 17:36 CT angio head w con, CT angio neck with con CLINICAL HISTORY: 78 years-old Female with stroke r/o. Acute stroke like symptoms COMPARISON STUDY: Head CT same day TECHNIQUE: Following the IV administration of 118 cc of Optiray, CT angiogram of the head and neck was performed from the skull base to the vertex. Images are reviewed in the axial, sagittal, and coronal planes. 3-D MIPS images are created and assessed. IV contrast was administered without complication. All measurements were obtained according to NASCET criteria. A dose lowering technique was utilized adhering to the principles of ALARA. CT DOSE: 371.88 mGy.cm FINDINGS: CT ANGIOGRAM OF THE HEAD AND NECK: Patent common and internal carotid arteries. The bilateral anterior and middle cerebral arteries are also patent. The vertebrobasilar system and posterior cerebral arteries are widely patent. There is no aneurysm, high-grade stenosis, or proximal branch occlusion identified. Dural sinuses appear patent. Biapical pleural-parenchymal scarring. Pulmonary emphysema. No pneumothorax. Calcified granuloma of the left upper lobe. Heterogeneous thyroid. Degenerative changes of the spine. IMPRESSION: Unremarkable CTA of the head and neck ACT 112: Negative or not required by law. The above report was generated using voice recognition software. It may contain grammatical, syntax or spelling errors. Electronically signed by: Cesar Valentine M.D. 09/04/2023 6:15 PM 09/04/23 13:28 CT head/brain wo con Stat 09/04/23 17:36 CTA head w con [CT angio head w con] Stat CTA neck with con [CT angio neck with con] Stat MRI Brain [MR brain wo con] Stat Hospital Course (1) Confusion: (2) Amnesia: (3) Carpal tunnel syndrome, right: (4) Urinary retention: (5) Dyslipidemia: (6) Gastroesophageal reflux disease: Plan 78 y/o female with PMHx of HLD, carpal tunnel syndrome, urinary retention, osteoporosis, asthma, GERD, HSV suppression, glaucoma presented with new onset confusion/anterograde amnesia: Confusion, Anterograde Amnesia - Resolved: Infectious work up unremarkable - WBC slightly elevated at 12 on admission (since resolved), but CXR, UA, respiratory viral panel all negative, patient afebrile and asymptomatic. Admitted for stroke/TIA work up: - MRI brain negative - CTA head and neck negative - TTE with bubble study - no interatrial shunt identified - Labs: HbA1c 5.7% - fasting lipid panel with total cholesterol 197, LDL 117 - B12 level, CRP, ESR all WNL Sx resolved overnight, patient with much clearer recollection of evening events, still unable to clearly recall morning prior to admission Overall presentation appears most consistent with transient global amnesia No medication changes made Total Time Total Time Spent Total Time Spent (In Minutes): see attending attestation Discharge Plan Discharge Items Patient Disposition: Home - Self-Care Reason For Visit: CONFUSION Discharge Diagnosis: transient global amnesia Activity: Resume your previous activity Non-emergency contact: Primary Care Provider Call non-emergency contact if: you have any medication questions and your symptoms worsen Follow-up/Referrals: Miguel A Murphy, [Primary Care Provider] - Diet: Heart Healthy Addtl Attending Provider Instructions: You were admitted to the hospital due to confusion and anterograde amnesia-like symptoms. A thorough work up was done, including advanced imaging studies and labs, all of which were negative. In particular, there is no evidence of stroke. Fortunately, it appears that you are back to your baseline - this leads us to believe that this episode is consistent with the diagnosis of transient global amnesia. We do not know exactly what causes this, and there is no specific treatment - as such, no new medications have been added during your hospital stay. One other consideration - your blood pressure was a bit elevated throughout most of your hospital stay. I understand there may be a component of white coat hypertension, but I would recommend bringing your blood pressure cuff into the office next time you see Dr. Murphy. This will allow them to compare your cuff to the office readings and verify that it is accurate. That will allow us to get a better idea of your day to day blood pressure based on home readings. At that point, it would be easier to determine whether there is a need to treat your blood pressure with medication. A discharge summary will be sent to your primary care physician to ensure continuity of care. Please bring this discharge summary with you to your next office appointment so that your provider can review it at that time. Medications: Your medication list has been reviewed and reconciled upon discharge to ensure accuracy and continuity of care. An updated list of all your medications is included with your hospital discharge paperwork. Please review this list closely and make note of any changes to your medications. - No changes were made to your home medications - please continue to take them as previously directed. Follow up appointments: - Make a follow up appointment with your PCP within the next week. It is very important that you follow up with them shortly after discharge from the hospital. - Keep all of your follow up appointments as already scheduled. If you cannot make an appointment, notify your provider. CONTACT YOUR PRIMARY CARE PROVIDER if you experience any of the following: - Difficulty following your treatment plan - Difficulty taking any of your medications CALL 911 OR GO TO THE EMERGENCY DEPARTMENT if you experience any of the following: - Sudden, severe abdominal pain or nausea/vomiting - Severe chest pain or chest pain that radiates to your jaw or arm - Sudden, severe shortness of breath or difficulty breathing Pending Studies at Discharge: No Stand-Alone Forms: [facility], Smoking Cessation Medications and DC Order Prescriptions: Continued famotidine 20 mg tablet 20 mg PO QPM Qty: 120 3RF Systane Gel 0.3 % gel 1 drp ophthalmic (eye) TID PRN (Reason: Dry Eyes) valacyclovir 500 mg tablet 500 mg PO QAM travoprost 0.004 % drops 1 drops OPB QPM calcium carbonate-vitamin D3 500-100 mg-unit tablet,chewable 1 tab PO QAM fluorometholone 0.1 % drops,suspension 1 drp OPL QAM Patient Comments: 1 drp OP LEFT EYE ONCE DAILY; Juice Plus 1 tab PO QPM calcium carbonate [Tums] 200 mg calcium (500 mg) tablet,chewable 200 mg PO HS Thera Tears 1 drp OPR BID PRN (Reason: Dry Eyes) acetaminophen [Acetaminophen Extra Strength] 500 mg tablet 500 mg PO HS brimonidine [Alphagan P] 0.1 % drops 1 drp OPL [facility]HS Discharge Orders: Discharge Order (Routine); Ordered 09/05/23 Ordered By: Abhinav Weber Admission Data Admit Date/Time: 09/04/23 17:36 Attending Provider: Liat Gonsales Admit Provider: Abhinav Weber Primary Care Provider: Miguel A Murphy Other Providers: Kavitha Shane Other Interventions: Discharge Summary Assessment (RN) Last Done: 09/05/23 14:30 Supervising Physician Co-Signing Physician Notes Attending Physician Supervision Note: I independently interviewed and examined the patient and verified the guardado history and physical, reviewed labs and image studies and agree with findings and care plan noted above. Resident Activity Tracking Resident Involvement: Resident Care Provided Care Provided: Adult [facility]
== END 2023-09-05 15:52 | disposition home or self-care (01) | DRG 72 ==
LOC: SUATTDRO → ED 13:10 → EDINP 17:36 → INTOOBSV 17:36 → EDINP 09-05 00:45 → 2W 09-05 01:15

== ENCOUNTER 2024-03-31 15:12 | Inpatient (IN) ==
--- NOTE | 2024-03-31 15:39 | ED Triage Note ---
Date of Service March 31, 2024 Provider in Triage Author: Rc Dumont History of Present Illness This patient was briefly evaluated while in triage. An abbreviated physical exam was performed. This patient is a 79-year-old Female who presents to the ED for evaluation of hi p pain. She was seen recently for a sacral fracture and chose to go home. However, she is in continued significant pain and has been unable to manage the pain at home and unable to take care of herself at home. The location of the pain is the same, just worse. Having trouble walking even with a walker. Denies any new or changing symptoms. Denies hematochezia, melena, hematuria, hemoptysis, or hematemesis. Denies abdominal pain, nausea, vomiting, chest pain, or SOB. Physical Exam GENERAL: Non-toxic and in no acute distress. HEENT: Pupils equal. No obvious scleral icterus. HEART: Regular rate and rhythm. LUNGS: Clear to auscultation. No accessory muscle use. ABDOMEN: Soft, nontender to palpation. NEURO: Alert and oriented. No obvious neurological deficits on quick neuro exam. MUSCULOSKELETAL: Unable to perform exam as the patient is in a wheelchair. Initial orders for labs and / or imaging were placed and patient was placed in the waiting area until a bed is available. Please see further documentation for the full ED course. MDM / Impression Impression Impression: Closed sacral fracture, Ambulatory dysfunction, Uncontrolled pain
[2024-03-31] MEDS: ACETAMINOPHEN 1,000 MG/100 ML VIAL IV STA (16:29)
[2024-03-31 16:45] LABS: Basophils # (auto) 0.03 K/uL (0.00-0.20); Basophils % (auto) 0.3 %; Eosinophils # (auto) 0.06 K/uL (0.00-0.50); Eosinophils % (auto) 0.6 %; Hematocrit (blood only) 43.1 % (37.0-47.0); Hemoglobin 14.3 g/dl (12.0-16.0); Immature Granulocytes # (auto) 0.06 K/uL (0.01-0.20); Immature Granulocytes % (auto) 0.6 %; Lymphocytes # (auto) 1.55 K/uL (1.20-3.40); Lymphocytes % (auto) 14.4 %; Mean Corpuscular Hemoglobin 30.5 pg (25.0-34.0); Mean Corpuscular Hgb Conc 33.2 g/dL (32.0-36.0); Mean Corpuscular Volume 91.9 fL (80.0-100.0); Mean Platelet Volume 9.8 fL (9.4-12.4); Monocytes # (auto) 0.94 K/uL (0.11-0.59); Monocytes % (auto) 8.7 %; Neutrophils # (auto) 8.12 K/uL (1.40-6.50); Neutrophils % (auto) 75.4 %; Platelet Count 262 K/uL (130-400); RDW Coefficient of Variation 13.1 % (11.5-14.5); RDW Standard Deviation 43.8 fL (36.4-46.3); Red Blood Count 4.69 M/uL (4.20-5.40); White Blood Count 10.76 K/ul (4.8-10.8)
[2024-03-31 17:01] LABS: Alanine Aminotransferase 14 U/L (7-52); Albumin Globulin Ratio 1.2 (0.9-2); Albumin Level 4.2 gm/dl (3.4-5.0); Alkaline Phosphatase 117 U/L (34-104); Anion Gap 8 (3-11); Aspartate Aminotransferase 21 U/L (13-39); BUN Creatinine Ratio 42.3 (10-20); Bilirubin,Total 0.4 mg/dl (0.2-1.0); Blood Urea Nitrogen 30 mg/dl (6-23); Calcium 9.4 mg/dl (8.6-10.3); Carbon Dioxide 27 mmol/L (21-32); Chloride 106 mmol/L (98-107); Globulin 3.4 gm/dl (2.5-4.0); Glucose 105 mg/dl (70-99(Fasting)); Potassium 4.4 mmol/L (3.5-5.1); Sodium 141 mmol/L (136-145); Total Protein 7.6 gm/dl (6.0-8.3)
--- NOTE | 2024-03-31 17:04 | Emergency Department Note ---
History of Present Illness General Chief complaint: Hip Pain Stated complaint: BROKEN SACRAL ALA Time Seen by Provider: 03/31/24 16:48 History of Present Illness Maximum Pain Intensity: 9 This is an 79-year-old female that presents to the emergency department via private vehicle accompanied by daughter with complaints of "pain, broken sacral ala". The patient and daughter provide the history. Patient was seen here in the ED on 03/28/2024 for evaluation of a fall that occurred 2.5 weeks prior to that visit. During the 03/28/2024 evaluation the patient underwent CT imaging of the L-spine and pelvis and on the L-spine there was note of acute nondisplaced bilateral sacral ala fractures which were felt to be causing the patient's symptoms. Patient at that time offered inpatient versus outpatient management and preferred to be discharged home. She returns today noting difficulty at home, does live alone. No fevers. No additional falls or trauma. Home Medications Medication Instructions Recorded Confirmed Type calcium 500 mg (as carbonate)-D3 1 tab PO QAM 11/14/18 03/31/24 History 2.5 mcg (100 unit) chewable tablet travoprost 0.004 % eye drops 1 drops OPB QPM 11/14/18 03/31/24 History valacyclovir 500 mg tablet 500 mg PO QAM 11/14/18 03/31/24 History Thera Tears 1 drp OPL BID PRN Dry Eyes 11/01/20 03/31/24 History calcium carbonate (Tums) 200 mg PO HS Acid Reflux 11/01/20 03/31/24 History fluorometholone 0.1 % eye 1 drp OPL QAM 11/01/20 03/31/24 History drops,suspension acetaminophen 500 mg tablet 500 mg PO HS 06/12/21 03/31/24 History (Acetaminophen Extra Strength) brimonidine 0.1 % eye drops 1 drp OPL AMHS 09/04/23 03/31/24 History (Alphagan P) famotidine 20 mg tablet 20 mg PO QPM 09/09/23 03/31/24 History denosumab 60 mg/mL subcutaneous 60 mg subcut .every 6 months 11/08/23 03/31/24 History syringe (Prolia) loratadine 10 mg tablet 10 mg PO DAILY PRN allergies 11/08/23 03/31/24 History meloxicam 7.5 mg tablet 7.5 mg PO DAILY #14 tabs 03/20/24 03/31/24 Rx sodium chloride 0.65 % nasal spray 1 - 2 spray intranasal BID PRN 03/31/24 03/31/24 History aerosol (Saline Nasal) allergies Allergies Allergy/AdvReac Type Severity Reaction Status Date / Time chloramphenicol Allergy Intermediate swelling Verified 03/31/24 18:25 epinephrine Allergy Intermediate "makes me Verified 03/31/24 18:25 even more uptight, heart racing" fluticasone Allergy Intermediate "eyes got Verified 03/31/24 18:25 funny" salmeterol Allergy Intermediate "eyes got Verified 03/31/24 18:25 funny" Sulfa (Sulfonamide Allergy Intermediate yeast Verified 03/31/24 18:25 Antibiotics) infection latex Allergy Unknown Unknown Verified 03/31/24 18:25 pred forte AdvReac Unknown Unknown Uncoded 03/31/24 18:25 Past Med/Surg History Problem List (Updated 04/01/24 @ 00:46 by Pasquale Mckoy PA-C) Uncontrolled pain (Acute) Ambulatory dysfunction (Acute) Closed sacral fracture (Acute ~03/14/24) Acute nondisplaced bilateral sacral ala fractures . Closed sacral fracture (Acute ~03/14/24) Acute nondisplaced bilateral sacral ala fractures from a fall about 2.5 weeks ago per the ED report dated 03/28/24. Fall (Acute) Cerebral microvascular disease Carpal tunnel syndrome, right Difficulty urinating Microscopic hematuria Urinary symptom or sign Urge incontinence Urinary retention Dyslipidemia (Acute) Osteoporosis with fracture (Acute) Followed by Dr. Beltran, Last Dexa Gastroesophageal reflux disease (Acute) Asthma (Acute) inhaler prn Medical History Hypertension Transient global amnesia History of colon polyps Osteoarthritis Basal cell carcinoma of upper lip Blindness of left eye History of Mohs micrographic surgery for skin cancer Glaucoma left eye Vitamin D deficiency Surgical History History of left breast biopsy benign History of colonoscopy with polypectomy (~10/2019) repeat 5 yrs History of oral surgery dental implant History of wisdom tooth extraction History of eye surgery calcium deposit removal x3 left eye History of left cataract extraction History of automated lamellar keratoplasty ? pt states she cant remember but has had many left eye sx History of tooth extraction History of tonsillectomy and adenoidectomy Family History Mother Pancreatic cancer Father Stomach cancer Aunt Breast cancer Other No family history of adverse response to anesthesia Denies family history of Ovarian cancer Prostate cancer Myocardial infarction Colorectal cancer Social History Smoking Status: Former smoker Tobacco Type: Cigarettes Age Started Using Tobacco: 14; Age Quit Using Tobacco: 28; packs per day: 1; Second Hand Exposure: No; Do You Dip or Chew Tobacco: No; Hx Alcohol Use: No Hx Substance Use: No Preferred Language: South African Communication Ability: Effective Visual Impairment: Limited Hearing Ability: Normal Trench Pipe Layer Required: No Beliefs That Will Affect Care: None marital status: / Current Living Situation: Alone current occupational status: retired How many Children do You have: 2 Other Information That Helps Us Care for You: No Feels Safe at Home: Yes Safety Concerns: Feels Safe At This Time Childhood Exposure to Second-Hand Smoke: Yes caffeine: Yes (drinks coffee in mornings and sometimes tea ) Dental Care, Regularly: Yes Physical Activity Frequency: 1-2 Times per Week Physical Activity Frequency Comment: walks when she can Seatbelt Use: always Sunscreen Use: Yes Assistive Devices: Denture - Upper and Walker Review of Systems A total of 10 systems reviewed and were otherwise negative Physical Exam Vital Signs Vital Signs - 24 hr 03/31/24 15:36 03/31/24 17:30 Temperature 36.5 C Temperature Source Temporal Artery Scan Pulse Rate 98 H Respiratory Rate 18 Blood Pressure 178/78 H Blood Pressure [Right Arm] 142/90 H Blood Pressure Mean 111 Blood Pressure Mean [Right Arm] 107 Pulse Oximetry 96 Oxygen Delivery Method Room Air Sepsis Recent Fever Within 48 Hours No Sepsis New/Unexplained Change in Mental Status N/A Sepsis Action Taken by Nursing No Action Required VITAL SIGNS - Vital signs and nursing notes were reviewed. Stable and afebrile. GENERAL -79-year-old female appearing her stated age. Communicates well with provider and answers questions appropriately. SKIN - Gross examination of the entire body surface demonstrates no lacerations to the body surface. HEAD - Normocephalic, Atraumatic. No Calixto's Sign or Raccoon's Eyes. No depressed skull fractures palpable. LUNGS - CTA CARDIAC - RRR EXTREMITIES - No gross deformities noted of the extremities.+5/5 strength noted in UE/LE bilaterally. Patient able plantarflex and dorsiflex the bilateral ankles without issue. NEUROLOGIC - Cranial nerves II through XII grossly intact. No deficits noted to the extremities. PSYCH -alert, oriented and pleasant on exam. Course Administered Medications Brimonidine Tartrate (Brimonidine Tartrate-P 0.15% 5 Ml Btl) 1 drops OPL HS JASEN Stop: 04/30/24 20:59 Last Admin: 03/31/24 21:27 Dose: 1 drops Documented By: CARMEN Docusate Sodium (Docusate Sodium 100 Mg Cap) 100 mg PO BID JASEN Stop: 04/30/24 20:59 Last Admin: 03/31/24 21:26 Dose: 100 mg Documented By: CARMEN Famotidine (Famotidine 20 Mg Tab) 20 mg PO BID JASEN Stop: 04/30/24 20:59 Last Admin: 03/31/24 21:26 Dose: 20 mg Documented By: CARMEN Acetaminophen (Ofirmev) 1,000 mg in 100 mls @ 400 mls/hr IV Q8H PRN PRN Reason: Pain or Fever Stop: 04/03/24 20:33 Last Infusion: 03/31/24 23:43 Dose: Infused Documented By: Admin: 03/31/24 23:22 Dose: 400 mls/hr Documented By: CAROLYN Sodium Chloride (Nss) 1,000 mls @ 70 mls/hr IV .[id number] JASEN Stop: 04/01/24 10:51 Last Admin: 03/31/24 23:39 Dose: 70 mls/hr Documented By: VALENTE Misdrewaneous (Order Awaiting Action - Fluorometholone 0.1 % Drops,Suspension) 1 each N/A QS JASEN Stop: 05/01/24 00:00 Last Admin: 04/01/24 00:22 Dose: Not Given Documented By: VALENTE Jacoboaneous (Remove Lidoderm Patch) 1 each N/A DAILY@2100 [facility] Stop: 04/30/24 20:59 Last Admin: 03/31/24 23:40 Dose: Not Given Documented By: VALENTE Travoprost (Travoprost Z 0.004% Oph Soln 2.5 Ml Btl) 1 drops OPB QPM JASEN Stop: 04/30/24 20:59 Last Admin: 03/31/24 21:27 Dose: 1 drops Documented By: BMK Discontinued Medications Acetaminophen (Ofirmev) 1,000 mg in 100 mls @ 400 mls/hr IV NOW STA Stop: 03/31/24 15:53 Last Infusion: 03/31/24 17:06 Dose: Infused Documented By: Admin: 03/31/24 16:29 Dose: 400 mls/hr Documented By: YANIQUE Ketorolac Tromethamine (Ketorolac Tromethamine 15 Mg/Ml Vial) 15 mg IV NOW ONE Stop: 03/31/24 18:03 Last Admin: 03/31/24 18:18 Dose: 15 mg Documented By: ROHAN Miscellaneous (Patient's Height Needed) 1 each N/A NOW STA Stop: 03/31/24 20:49 Last Admin: 03/31/24 23:38 Dose: 1 each Documented By: VALENTE Medical Decision Making Laboratory Data 03/31/24 16:27 03/31/24 16:27 Lab Results 03/31/24 Range/Units 16:27 WBC 10.76 (4.8-10.8) K/ul RBC 4.69 (4.20-5.40) M/uL Hgb 14.3 (12.0-16.0) g/dl Hct 43.1 (37.0-47.0) % MCV 91.9 (80.0-100.0) fL MCH 30.5 (25.0-34.0) pg MCHC 33.2 (32.0-36.0) g/dL RDW Std Deviation 43.8 (36.4-46.3) fL RDW Coeff of Lorne 13.1 (11.5-14.5) % Plt Count 262 (130-400) K/uL MPV 9.8 (9.4-12.4) fL Immature Gran % (Auto) 0.6 % Neut % (Auto) 75.4 % Lymph % (Auto) 14.4 % [place] % (Auto) 8.7 % Eos % (Auto) 0.6 % Baso % (Auto) 0.3 % Neut # (Auto) 8.12 H (1.40-6.50) K/uL Lymph # (Auto) 1.55 (1.20-3.40) K/uL [place] # (Auto) 0.94 H (0.11-0.59) K/uL Eos # (Auto) 0.06 (0.00-0.50) K/uL Baso # (Auto) 0.03 (0.00-0.20) K/uL Immature Gran # (Auto) 0.06 (0.01-0.20) K/uL Sodium 141 (136-145) mmol/L Potassium 4.4 (3.5-5.1) mmol/L Chloride 106 (98-107) mmol/L Carbon Dioxide 27 (21-32) mmol/L Anion Gap 8 (3-11) BUN 30 H (6-23) mg/dl Creatinine 0.71 (0.6-1.2) mg/dl Est Cr Clr Drug Dosing Not Reportable eGFR 85.37 BUN/Creatinine Ratio 42.3 H (10-20) Glucose 105 H (70-99(Fasting)) mg/dl Calcium 9.4 (8.6-10.3) mg/dl Total Bilirubin 0.4 (0.2-1.0) mg/dl AST 21 (13-39) U/L ALT 14 (7-52) U/L Alkaline Phosphatase 117 H (34-104) U/L Total Protein 7.6 (6.0-8.3) gm/dl Albumin 4.2 (3.4-5.0) gm/dl Globulin 3.4 (2.5-4.0) gm/dl Albumin/Globulin Ratio 1.2 (0.9-2) MDM Narrative Patient was seen and evaluated as above in room D01. Review was performed of triage nursing notes and vital signs. I did review pertinent previous visits and patient history. After obtaining a thorough history and physical examination the above work up was performed. I did personally see the patient on her previous visit when she was diagnosed with the acute nondisplaced bilateral sacral ala fractures. Patient did prefer discharge at that time and respectfully declined prescription pain medication. However she notes living alone and performing ADLs is difficult noting pain that worsens throughout the day. She is here today with daughter inquiring about potentially being admitted/rehabilitation which I believe is reasonable. On my assessment no new trauma or injury. Options of care were discussed with patient and daughter. I did consult case management. We reviewed options. Will proceed with inpatient management with likely placement to acute care rehab facility. Case discussed with the hospitalist service. Please refer to further documentation regarding her stay. Patient did receive IV analgesia as ordered from triage. Labs reveal no leukocytosis or concerning anemia. No emergent metabolic disturbance. Urinalysis does not suggest infection. GCS: 15 In the evaluation and treatment of this patient the following differential diagnoses were entertained: Sacral fracture, contusion, sprain, cord injury, among others. Impression & Plan Closed sacral fracture, Ambulatory dysfunction, Uncontrolled pain Discharge Plan Visit Data Chief Complaint: Hip Pain Stated Complaint: BROKEN SACRAL ALA ED Provider: Girma Hidalgo ED Midlevel Provider: Pasquale Mckoy Discharge Problem: Closed sacral fracture, Ambulatory dysfunction, Uncontrolled pain Patient Disposition: Admitted As Inpatient Condition: Good Discharge Instructions Interventions: ED Discharge Assessment Last Done: 03/31/24 21:26
--- NOTE | 2024-03-31 17:44 | History & Physical Report ---
Date of Service March 31, 2024 Assessment & Plan (1) Closed sacral fracture: Plan: Acute nondisplaced bilateral sacral ala fractures on imaging 03/28 Admit med surg Pain control: APAP 1gm q8h prn, Toradol IV prn, heating pad, lidocaine patch Bowel regimen: Miralax daily, colace BID, monitor for dulcolax/suppository if needed Pepcid changed to BID given Toradol use as takes once daily at baseline NSS x 1 L for mild dehydration Orthopedics consult, likely nothing but WBAT w/ walker but appreciate recs/eval PT/OT consults, will need rehab, hopefully [facility] Vit D level in AM (on 2000IU daily) (2) Gastroesophageal reflux disease: Plan: pepcid continued, increased to BID w/ NSAIDs and will monitor for need for PPI if issues. Mallox available prn in meantime (3) Glaucoma: Plan: hx zoster in the past as well, continues valtrex once daily home eye drops continued, has 2 of 3 but needs the travoprost and all have been ordered (4) Vitamin D deficiency: Plan: repeat vit D in AM (5) Ambulatory dysfunction: Plan: await therapy evals (6) Uncontrolled pain: Plan: monitor response to tx as above, escalation as needed Plan DVT proph: Lovenox SQ ordered Dispo: inpatient stay for pain control, therapy evals and rehab placement. Updated daughter at bedside in ER. History of Present Illness Chief Complaint: sacral fracture, pain control, ambulatory dysfucntion Primary Care Provider: Miguel A Murphy, 79yo female presented for ongoing pain control/inability to care for herself at home with recent ER visit for LBP w/ imaging noting b/l sacral alar fractures and was offered pain medication but was comfortable going home on tylenol with orthopedic follow up. Fxs suspected 2nd to fall several weeks prior. She reports was going out front door/one step and came down on buttocks. Lives alone, came back to ER for inability to care for herself/want for rehab and ongoing /uncontrolled pain. No new falls/injury from ER visit 03/28. Per ER [facility], unable to dc to [facility] from rehab 2nd to insurance and need for qualifying inpatient stay. They have discussed w/ ortho, Herickoff, walker/pain control, Dr Go over weekend covering. Patient eval in D1A, daughter at bedside. Laying in bed, ongoing discomfort. Discussed trial Toradol IV x 1 now, if effective can continue. No loss of bowel/bladder function but does note has been having some constipation 2nd to poor PO intake/pain, likely immobilization Does take pepcid at night for reflux, will make BID w/ NSAIDs. Will order lidocaine patch, baclofen if need for spasm. Continue APAP fever/headache or mild pain. 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 Has all eye drops except travoprost and will need ordered. Bowel regimen to be ordered, therapy evals and rehab placement hopefully with [facility]. She is typically a very active person at baseline. Daughter plans to take her w/ her to her home after acute IPR and req hospital bed. Daughter inquiring about getting hospital beds/etc and will take home w/ her after acute IPR stay. No fever/chills, CP/SOB, numbness/tingling, loss of bowel/bladder function, however does endorse poor PO intake due to pain as well as constipation. Takes Vit D at baseline 2000 IU. Full code. Allergies Allergy/AdvReac Type Severity Reaction Status Date / Time chloramphenicol Allergy Intermediate swelling Verified 03/31/24 18:25 epinephrine Allergy Intermediate "makes me Verified 03/31/24 18:25 even more uptight, heart racing" fluticasone Allergy Intermediate "eyes got Verified 03/31/24 18:25 funny" salmeterol Allergy Intermediate "eyes got Verified 03/31/24 18:25 funny" Sulfa (Sulfonamide Allergy Intermediate yeast Verified 03/31/24 18:25 Antibiotics) infection latex Allergy Unknown Unknown Verified 03/31/24 18:25 pred forte AdvReac Unknown Unknown Uncoded 03/31/24 18:25 Home Medications Medication Instructions Recorded Confirmed Type calcium 500 mg (as carbonate)-D3 1 tab PO QAM 11/14/18 03/31/24 History 2.5 mcg (100 unit) chewable tablet travoprost 0.004 % eye drops 1 drops OPB QPM 11/14/18 03/31/24 History valacyclovir 500 mg tablet 500 mg PO QAM 11/14/18 03/31/24 History Thera Tears 1 drp OPL BID PRN Dry Eyes 11/01/20 03/31/24 History calcium carbonate (Tums) 200 mg PO HS Acid Reflux 11/01/20 03/31/24 History fluorometholone 0.1 % eye 1 drp OPL QAM 11/01/20 03/31/24 History drops,suspension acetaminophen 500 mg tablet 500 mg PO HS 06/12/21 03/31/24 History (Acetaminophen Extra Strength) brimonidine 0.1 % eye drops 1 drp OPL AMHS 09/04/23 03/31/24 History (Alphagan P) famotidine 20 mg tablet 20 mg PO QPM 09/09/23 03/31/24 History denosumab 60 mg/mL subcutaneous 60 mg subcut .every 6 months 11/08/23 03/31/24 History syringe (Prolia) loratadine 10 mg tablet 10 mg PO DAILY PRN allergies 11/08/23 03/31/24 History meloxicam 7.5 mg tablet 7.5 mg PO DAILY #14 tabs 03/20/24 03/31/24 Rx sodium chloride 0.65 % nasal spray 1 - 2 spray intranasal BID PRN 03/31/24 03/31/24 History aerosol (Saline Nasal) allergies Past Med/Surg History Problem List (Updated 04/01/24 @ 00:46 by Pasquale Mckoy PA-C) Uncontrolled pain (Acute) Ambulatory dysfunction (Acute) Closed sacral fracture (Acute ~03/14/24) Acute nondisplaced bilateral sacral ala fractures . Closed sacral fracture (Acute ~03/14/24) Acute nondisplaced bilateral sacral ala fractures from a fall about 2.5 weeks ago per the ED report dated 03/28/24. Fall (Acute) Cerebral microvascular disease Carpal tunnel syndrome, right Difficulty urinating Microscopic hematuria Urinary symptom or sign Urge incontinence Urinary retention Dyslipidemia (Acute) Osteoporosis with fracture (Acute) Followed by Dr. Beltran, Last Dexa Gastroesophageal reflux disease (Acute) Asthma (Acute) inhaler prn Medical History Hypertension Transient global amnesia History of colon polyps Osteoarthritis Basal cell carcinoma of upper lip Blindness of left eye History of Mohs micrographic surgery for skin cancer Glaucoma left eye Vitamin D deficiency Surgical History History of left breast biopsy benign History of colonoscopy with polypectomy (~10/2019) repeat 5 yrs History of oral surgery dental implant History of wisdom tooth extraction History of eye surgery calcium deposit removal x3 left eye History of left cataract extraction History of automated lamellar keratoplasty ? pt states she cant remember but has had many left eye sx History of tooth extraction History of tonsillectomy and adenoidectomy Family History Mother Pancreatic cancer Father Stomach cancer Aunt Breast cancer Other No family history of adverse response to anesthesia Denies family history of Ovarian cancer Prostate cancer Myocardial infarction Colorectal cancer Social History Smoking Status: Former smoker Tobacco Type: Cigarettes Age Started Using Tobacco: 14; Age Quit Using Tobacco: 28; packs per day: 1; Second Hand Exposure: No; Do You Dip or Chew Tobacco: No; Hx Alcohol Use: No Hx Substance Use: No Preferred Language: Argentine Communication Ability: Effective Visual Impairment: Limited Hearing Ability: Normal Automatic Buffing Wheel Former Required: No Beliefs That Will Affect Care: None marital status: / Current Living Situation: Alone current occupational status: retired How many Children do You have: 2 Other Information That Helps Us Care for You: No Feels Safe at Home: Yes Safety Concerns: Feels Safe At This Time Childhood Exposure to Second-Hand Smoke: Yes caffeine: Yes (drinks coffee in mornings and sometimes tea ) Dental Care, Regularly: Yes Physical Activity Frequency: 1-2 Times per Week Physical Activity Frequency Comment: walks when she can Seatbelt Use: always Sunscreen Use: Yes Assistive Devices: Denture - Upper and Walker Review of Systems Review of Systems: All systems reviewed & are unremarkable except as noted in HPI & below Physical Exam Physical Exam: General: 79yo female sitting up in bed, daughter at bedside, NAD but mildly uncomfortable HEENT: head atraumatic, normocephalic, mm slightly dry, trachea midline Resp: CTA, no w/c/r, on room air CV: RRR, no significant m/r/g, no pitting edema GI: +BS, slight distension, no overt tenderness/guarding/rebound : no vazquez MSK/Neuro: + tenderness b/l sacrum, no significant hematoma/ecchymosis, NVI, dorsiflexion/plantar flexion intact +discomfort to LB w/ sitting up in bed/position changes Psych:AOx3 Results & Data Results & Data Vital Signs (Past 12 Hours) Vital Signs Temp Pulse Resp BP BP Pulse Ox O2 Del Method 03/31/24 17:30 142/90 H 03/31/24 15:36 36.5 C 98 H 18 178/78 H 96 Room Air Laboratory Results 03/31/24 Range/Units 16:27 WBC 10.76 (4.8-10.8) K/ul RBC 4.69 (4.20-5.40) M/uL Hgb 14.3 (12.0-16.0) g/dl Hct 43.1 (37.0-47.0) % MCV 91.9 (80.0-100.0) fL MCH 30.5 (25.0-34.0) pg MCHC 33.2 (32.0-36.0) g/dL RDW Std Deviation 43.8 (36.4-46.3) fL RDW Coeff of Lorne 13.1 (11.5-14.5) % Plt Count 262 (130-400) K/uL MPV 9.8 (9.4-12.4) fL Immature Gran % (Auto) 0.6 % Neut % (Auto) 75.4 % Lymph % (Auto) 14.4 % [place] % (Auto) 8.7 % Eos % (Auto) 0.6 % Baso % (Auto) 0.3 % Neut # (Auto) 8.12 H (1.40-6.50) K/uL Lymph # (Auto) 1.55 (1.20-3.40) K/uL [place] # (Auto) 0.94 H (0.11-0.59) K/uL Eos # (Auto) 0.06 (0.00-0.50) K/uL Baso # (Auto) 0.03 (0.00-0.20) K/uL Immature Gran # (Auto) 0.06 (0.01-0.20) K/uL Sodium 141 (136-145) mmol/L Potassium 4.4 (3.5-5.1) mmol/L Chloride 106 (98-107) mmol/L Carbon Dioxide 27 (21-32) mmol/L Anion Gap 8 (3-11) BUN 30 H (6-23) mg/dl Creatinine 0.71 (0.6-1.2) mg/dl Est Cr Clr Drug Dosing Not Reportable eGFR 85.37 BUN/Creatinine Ratio 42.3 H (10-20) Glucose 105 H (70-99(Fasting)) mg/dl Calcium 9.4 (8.6-10.3) mg/dl Total Bilirubin 0.4 (0.2-1.0) mg/dl AST 21 (13-39) U/L ALT 14 (7-52) U/L Alkaline Phosphatase 117 H (34-104) U/L Total Protein 7.6 (6.0-8.3) gm/dl Albumin 4.2 (3.4-5.0) gm/dl Globulin 3.4 (2.5-4.0) gm/dl Albumin/Globulin Ratio 1.2 (0.9-2) Supervising Physician Co-Signing Physician Notes I personally saw and examined the patient. I independently reviewed the labs, imaging, problem list, medication list, past medical history and family history. I verified all guardado points and agree with Mabel Du PA-C with the following exceptions and/or additions: 79-year-old female with closed sacral fracture from 3 weeks ago but pr ogressively getting worse now requiring rehabilitation. No radicular symptoms. Pain relief with acetaminophen, Toradol, oxycodone. PT/OT, discharge to rehab when able. PG Care Time/CCT Total # of Minutes Spent Total Time Spent with Patient: Total time spent is greater than 50% in coordination of care (as documented) at patient's floor/unit and/or counseling patient: Coding Level of Care Code 58862 INT INP/OBS CARE MIN Diagnoses Closed sacral fracture S32.10XA Gastroesophageal reflux disease K21.9 Glaucoma H40.9 Vitamin D deficiency E55.9 Ambulatory dysfunction R26.2 Uncontrolled pain R52
[2024-03-31] MEDS: KETOROLAC TROMETHAMINE 15 MG/ML VIAL IV ONE (18:18)
[2024-03-31] MEDS ORDERED: THERA TEARS OPR PRN (20:34)
[2024-03-31] MEDS ORDERED: ALUMINUM/MAGNESIUM SUSP 30 ML UDC PO PRN (20:34)
[2024-03-31] MEDS ORDERED: ONDANSETRON INJ 2 MG/ML 2 ML VIAL IV PRN (20:34)
[2024-03-31] MEDS ORDERED: ARTIFICIAL TEARS OP PRN (20:57)
[2024-03-31 21:11] LABS: Appearance Urine Clear (Clear); Bacteria Urine Automated None Seen (None Seen); Bilirubin Urine Negative (Negative); Blood Urine 1+ (Negative); Cast Urine Automated 0-2 /lpf (0-2); Color Urine Yellow; Epithelial Cell Urine Auto 0-2 /hpf (0-2); Glucose Urine UA Negative (Negative); Ketones Urine Trace (Negative); Leukocyte Esterase Urine 1+ (Negative); Nitrite Urine Negative (Negative); Protein Urine Negative (Negative); RBC Urine Automated 0-2 /hpf (0-2); Specific Gravity Urine 1.016 (1.000-1.030); Urobilinogen Urine Negative (Negative); WBC Urine Automated 0-5 /hpf (0-5); pH Urine 5.5 (4.5-7.5)
[2024-03-31] MEDS: DOCUSATE SODIUM 100 MG CAP PO SCH (21:26)
[2024-03-31] MEDS: FAMOTIDINE 20 MG TAB PO SCH (21:26)
[2024-03-31] MEDS: TRAVOPROST Z 0.004% OPH SOLN 2.5 ML BTL OPB SCH (21:27)
[2024-03-31] MEDS: BRIMONIDINE TARTRATE-P 0.15% 5 ML BTL OPL SCH (21:27)
[2024-03-31] MEDS: ACETAMINOPHEN 1,000 MG/100 ML VIAL IV PRN (23:22)
[2024-03-31] MEDS: Patient's HEIGHT Needed STA (23:38)
[2024-03-31] MEDS: SODIUM CHLORIDE 0.9% 1,000 ML IV SCH (23:39)
[2024-04-01] MEDS: KETOROLAC TROMETHAMINE 15 MG/ML VIAL IV PRN (05:23)
[2024-04-01 07:44] LABS: Basophils # (auto) 0.03 K/uL (0.00-0.20); Basophils % (auto) 0.4 %; Eosinophils # (auto) 0.28 K/uL (0.00-0.50); Eosinophils % (auto) 3.7 %; Hematocrit (blood only) 38.8 % (37.0-47.0); Hemoglobin 12.7 g/dl (12.0-16.0); Immature Granulocytes # (auto) 0.03 K/uL (0.01-0.20); Immature Granulocytes % (auto) 0.4 %; Lymphocytes # (auto) 1.78 K/uL (1.20-3.40); Lymphocytes % (auto) 23.7 %; Mean Corpuscular Hemoglobin 30.5 pg (25.0-34.0); Mean Corpuscular Hgb Conc 32.7 g/dL (32.0-36.0); Mean Corpuscular Volume 93.3 fL (80.0-100.0); Mean Platelet Volume 9.9 fL (9.4-12.4); Monocytes % (auto) 10.7 %; Neutrophils # (auto) 4.58 K/uL (1.40-6.50); Neutrophils % (auto) 61.1 %; Platelet Count 251 K/uL (130-400); RDW Standard Deviation 44.4 fL (36.4-46.3); Red Blood Count 4.16 M/uL (4.20-5.40)
[2024-04-01 07:55] LABS: Calcium 8.1 mg/dl (8.6-10.3); Creatinine Clr Calc Pharmacy 50.2 ml/min; Magnesium 2.1 mg/dl (1.7-2.4); Potassium 4.2 mmol/L (3.5-5.1)
[2024-04-01] MEDS: FLUTICASONE PROPIONATE NA SPR 16 GM BTL NAE SCH (08:07)
[2024-04-01] MEDS: LORATADINE 10 MG TAB PO SCH (08:08)
[2024-04-01] MEDS: POLYETHYLENE (MIRALAX) 17 GM PACK PO SCH ×2 (08:09→14:01)
[2024-04-01] MEDS: valACYclovir HCL 500 MG TABLET PO SCH (08:09)
[2024-04-01] MEDS: LIDOCAINE 5% 1 PATCH TD SCH (08:09)
[2024-04-01] MEDS: CALCIUM 600MG + VIT D 400 IU TAB PO SCH (08:09)
--- NOTE | 2024-04-01 09:04 | Hospitalist Progress Note ---
Date of Service April 01, 2024 Assessment & Plan (1) Closed sacral fracture: Plan: Acute nondisplaced bilateral sacral ala fractures on imaging 03/28 with ongoing/uncontrolled pain and inability to take care of herself at home. No new injury/fall since that time but poor PO intake and associated constipation 2nd to decreased mobility 2nd to fracture Continue pain control -tylenol, toradol IV, lidocaine patch. RN to call for heating pad. Oxycodone if needed Bowel regimen - increased miralax to TID, senna added Ambulation encouraged as able with pain control. Monitor for ileus (+BS, slightly more distended though). Suppository if needed discussed/added Vit D wnl Orthopedics consulted, likely nonop but appreciate recs/eval. WBAT w/ walker for now PT/OT consulted, plan for rehab. CM to follow (2) Gastroesophageal reflux disease: Plan: pepcid continued, increased to BID w/ NSAIDs No issues reported (3) Ambulatory dysfunction: Plan: await therapy evals (4) Uncontrolled pain: Plan: monitor response to tx as above, escalation as needed. appears stable at this time, working on bowels. monitor for ileus/urinary retention/infection Plan DVT proph: Lovenox SQ ordered while inpatient Dispo: need for rehab prior to return home. Daughter would like rx for hospital bed to take home to her house after rehab to have patient stay with her. Will await evals/provide as able Admission and Anticipated Discharge Date Admission Date: March 31, 2024 Supervising Physician Co-Signing Physician Notes The patient was not seen by me. The chart was reviewed. Case discussed with AVA Yeager. Agree with assessment and plan Subjective Eval this morning, ambulating back from bathroom with walker. No BM, bowel regimen increased and plan for suppository after lunch if ongoing issues. RN to call for heating pad, toradol helpful for pain and continued. No CP/SOB at this time. No burning/urinary sx but to alert if occurs. Improvement in PO intake, less dehydrated. Req IVF discontinued and have done. Waiting for therapy evals/rehab. Physical Exam 2 Physical Exam: General: 79yo ambulating back from bathroom, mild uncomfortable with twisting/standing from toilet but improved, NAD HEENT: head atraumatic, normocephalic, mm improved, trachea midline Resp: CTA, no w/c/r, on room air CV: RRR, no significant m/r/g, no pitting edema GI: +BS, slight distension, +cramping, no overt tenderness/guarding : no vazquez MSK/Neuro: + tenderness b/l sacrum, no significant hematoma/ecchymosis, NVI, dorsiflexion/plantar flexion intact +discomfort to LB w/ sitting up in bed/p osition changes Psych:AOx3 Results & Data Results & Data Vital Signs (Past 12 Hours) Vital Signs Temp Pulse Resp BP Pulse Ox O2 Del Method 04/01/24 07:47 36.6 C 83 16 147/76 H 95 Room Air 03/31/24 22:00 36.7 C 86 18 173/84 H 93 Room Air 03/31/24 21:33 86 19 188/92 H 100 Room Air Laboratory Results 04/01/24 06:57 04/01/24 06:57 PG Care Time/CCT Total # of Minutes Spent Total Time Spent with Patient: Total time spent is greater than 50% in coordination of care (as documented) at patient's floor/unit and/or counseling patient: Coding Level of Care Code 90978 SUB INP/OBS CARE 2/35MIN Diagnoses Closed sacral fracture S32.10XA Gastroesophageal reflux disease K21.9 Ambulatory dysfunction R26.2 Uncontrolled pain R52
[2024-04-01] MEDS ORDERED: LORATADINE 10 MG TAB PO PRN (09:06)
[2024-04-01] MEDS ORDERED: BRIMONIDINE TARTRATE-P 0.15% 5 ML BTL OPL SCH (09:15)
[2024-04-01] MEDS: BRIMONIDINE TARTRATE-P 0.15% 5 ML BTL OPL SCH (09:58)
[2024-04-01] MEDS: ENOXAPARIN INJ 40 MG/0.4 ML SYR SQ SCH (10:00)
[2024-04-01] MEDS: FLUOROMETHOLONE OPL SCH (10:38)
--- NOTE | 2024-04-01 11:32 | Orthopedic Consultation ---
Date of Consultation April 01, 2024 Assessment & Plan (1) Uncontrolled pain: (2) Ambulatory dysfunction: (3) Closed sacral fracture: Findings discussed with patient and son. CT scan of the lumbar spine and pelvis are reviewed. There is questionable subtle nondisplaced fractures involving the sacrum on both sides. There is severe lumbar spine arthritis. There is no hip or other pelvis fracture noted. The report is noted. Her vitamin D is within normal limits. She is neurologically intact. This is an issue related to pain control and function. PT and OT have been consulted. She can ambulate weight-bear as tolerated using a walker. She should have a PT and OT assessment and then may benefit from temporary stay in rehab. Pain control. Nasal [place] calcitonin may be beneficial for her acutely to help with pain. She may follow-up with me as an outpatient upon her discharge. 1 to 2 weeks after discharge. She is on Lovenox for DVT prophylaxis. (4) Lumbar spondylosis: History of Present Illness Attending Physician: Connor Crow MD History of Present Illness Samantha is an 79-year-old female. She slipped and fell landing on her buttocks about 3 weeks ago. She did fine initially but had progressive pain which prompted her to come to the hospital and be admitted. She has a known history of osteoporosis. She is on Prolia. Her vitamin D is within normal limits. Today she notes a little discomfort in her right leg but otherwise pain has been in the lower back sacrum area. Allergies Allergy/AdvReac Type Severity Reaction Status Date / Time chloramphenicol Allergy Intermediate swelling Verified 03/31/24 18:25 epinephrine Allergy Intermediate "makes me Verified 03/31/24 18:25 even more uptight, heart racing" fluticasone Allergy Intermediate "eyes got Verified 03/31/24 18:25 funny" salmeterol Allergy Intermediate "eyes got Verified 03/31/24 18:25 funny" Sulfa (Sulfonamide Allergy Intermediate yeast Verified 03/31/24 18:25 Antibiotics) infection latex Allergy Unknown Unknown Verified 03/31/24 18:25 prednisolone AdvReac Unknown PRED FORTE Verified 04/01/24 10:46 EYE (CAUSED INCREASED PRESSURE) Home Medications Medication Instructions Recorded Confirmed Type calcium 500 mg (as carbonate)-D3 1 tab PO QAM 11/14/18 03/31/24 History 2.5 mcg (100 unit) chewable tablet travoprost 0.004 % eye drops 1 drops OPB QPM 11/14/18 03/31/24 History valacyclovir 500 mg tablet 500 mg PO QAM 11/14/18 03/31/24 History Thera Tears 1 drp OPL BID PRN Dry Eyes 11/01/20 03/31/24 History calcium carbonate (Tums) 200 mg PO HS Acid Reflux 11/01/20 03/31/24 History fluorometholone 0.1 % eye 1 drp OPL QAM 11/01/20 03/31/24 History drops,suspension acetaminophen 500 mg tablet 500 mg PO HS 06/12/21 03/31/24 History (Acetaminophen Extra Strength) brimonidine 0.1 % eye drops 1 drp OPL [facility] 09/04/23 03/31/24 History (Alphagan P) famotidine 20 mg tablet 20 mg PO QPM 09/09/23 03/31/24 History denosumab 60 mg/mL subcutaneous 60 mg subcut .every 6 months 11/08/23 03/31/24 History syringe (Prolia) loratadine 10 mg tablet 10 mg PO DAILY PRN allergies 11/08/23 03/31/24 History meloxicam 7.5 mg tablet 7.5 mg PO DAILY #14 tabs 03/20/24 03/31/24 Rx sodium chloride 0.65 % nasal spray 1 - 2 spray intranasal BID PRN 03/31/24 03/31/24 History aerosol (Saline Nasal) allergies Patient History Medical History Hypertension Transient global amnesia History of colon polyps Osteoarthritis Basal cell carcinoma of upper lip Blindness of left eye History of Mohs micrographic surgery for skin cancer Glaucoma left eye Vitamin D deficiency Surgical History History of left breast biopsy benign History of colonoscopy with polypectomy (~10/2019) repeat 5 yrs History of oral surgery dental implant History of wisdom tooth extraction History of eye surgery calcium deposit removal x3 left eye History of left cataract extraction History of automated lamellar keratoplasty ? pt states she cant remember but has had many left eye sx History of tooth extraction History of tonsillectomy and adenoidectomy Family History Mother Pancreatic cancer Father Stomach cancer Aunt Breast cancer Other No family history of adverse response to anesthesia Denies family history of Ovarian cancer Prostate cancer Myocardial infarction Colorectal cancer Social History Smoking Status: Former smoker Tobacco Type: Cigarettes Age Started Using Tobacco: 14; Age Quit Using Tobacco: 28; packs per day: 1; Second Hand Exposure: No; Do You Dip or Chew Tobacco: No; Hx Alcohol Use: No Hx Substance Use: No Preferred Language: Cypriot Communication Ability: Effective Visual Impairment: Limited Hearing Ability: Normal Cherry Cutter Required: No Beliefs That Will Affect Care: None marital status: / Current Living Situation: Alone current occupational status: retired How many Children do You have: 2 Other Information That Helps Us Care for You: No Feels Safe at Home: Yes Safety Concerns: Feels Safe At This Time Childhood Exposure to Second-Hand Smoke: Yes caffeine: Yes (drinks coffee in mornings and sometimes tea ) Dental Care, Regularly: Yes Physical Activity Frequency: 1-2 Times per Week Physical Activity Frequency Comment: walks when she can Seatbelt Use: always Sunscreen Use: Yes Assistive Devices: Denture - Upper and Walker Physical Exam Physical Exam: She is able to stand and ambulate a few steps independently. There is minimal discomfort to palpation over the sacrum and nothing over the lumbar spine. PT pulses are 1+ sensation intact and knee flexion extension hip flexion extension and ankle and toe plantarflexion dorsiflexion as well as sensation are intact with 5 out of 5 strength. Results & Data Vital Signs (Past 12 Hours) Vital Signs Temp Pulse Resp BP Pulse Ox O2 Del Method 04/01/24 07:47 36.6 C 83 16 147/76 H 95 Room Air
[2024-04-01] MEDS: CALCITONIN SALMON NA 200 IU/AC 3.7 ML BTL SCH (13:01)
[2024-04-01] MEDS: SENNA 8.6 MG TAB PO SCH (13:02)
[2024-04-02] MEDS: oxyCODONE HCL IR 5 MG TAB (IMMEDIATE RELEASE) PO PRN (00:02)
[2024-04-02] MEDS: CYCLOBENZAPRINE HCL 5 MG TAB PO STA (04:10)
[2024-04-02] MEDS ORDERED: BACLOFEN 10 MG TAB PO PRN (08:44)
--- NOTE | 2024-04-02 08:55 | Hospitalist Progress Note ---
Date of Service April 02, 2024 Assessment & Plan (1) Closed sacral fracture: Plan: Acute nondisplaced bilateral sacral ala fractures on imaging 03/28 with ongoing/uncontrolled pain and inability to take care of herself at home. No new injury/fall since that time but poor PO intake and associated constipation 2nd to decreased mobility 2nd to fracture Vit D wnl Orthopedics consulted - WB as tolerated with walker, added calcitonin nasal spray Pain control: continue calcitonin nasal spray, tylenol, low dose oxycodone. Lidocaine patch, heating pad. Flexeril 5mg PO x 1 overnight, will make 5mg prn but cautious w/ elderly Bowel regimen: colace BID, senna, miralax TID. KUB to eval stool burden but +BS on exam/flatus today and will monitor for dulcolax suppository this afternoon PT/OT consults still pending but plan for IPR at [facility]. CM to follow DVT proph: Lovenox SQ once daily (2) Gastroesophageal reflux disease: Plan: pepcid continued, increased to BID w/ NSAIDs No issues reported (3) Ambulatory dysfunction: Plan: await therapy evals as above, WB as harris w/ walker (4) Uncontrolled pain: Plan: monitor response to tx as above, escalation as needed. added flexeril as above, bowel regimen as outlined Plan DVT proph: Lovenox SQ ordered while inpatient Dispo: continued inpatient stay, therapy evals pending. Added flexeril, KUB to eval stool burden/suppository if needed Admission and Anticipated Discharge Date Admission Date: March 31, 2024 Supervising Physician Co-Signing Physician Notes The patient was not seen by me. The chart was reviewed. Case discussed with AVA Yeager. Agree with assessment and plan Subjective Eval this morning, up in chair. Difficult night but slightly tired this morning but feeling better but got dose flexeril overnight. Passing some gas but no BM, reports is getting the miralax and hopefully soon. PT has not yet seen but hopefully today, will message. Rehab planned hopefully next day or two w/ pain control once therapy recs received. No overt abdominal pain or vomiting but just feels distended. KUB ordered, suppistory afternoon pending results. No fever/chill, chest pain, SOB. Questions/concerns addressed at this time. Physical Exam Physical Exam: General: 79yo sitting up in chair, feels better since medication early this morning, NAD HEENT: head atraumatic, normocephalic, mm improved, trachea midline Resp: even/unlabored, no wheezing/rales, on room air CV: RRR, no significant m/r/g no pitting edema GI: +BS (increased), remains distended, no overt tenderness/rigidity/guarding no vazquez MSK/Neuro: + tenderness b/l sacrum, no significant hematoma/ecchymosis, NVI, dorsiflexion/plantar flexion intact +discomfort to LB w/ sitting up in bed/p osition changes (improved compared to prior) Psych:AOx3, fatigued appearing since flexeril this morning Results & Data Results & Data Vital Signs (Past 12 Hours) Vital Signs Temp Pulse Resp BP Pulse Ox O2 Del Method 04/02/24 08:04 36.7 C 90 16 180/80 H 94 Room Air 04/01/24 21:08 36.9 C 64 18 104/72 94 Room Air PG Care Time/CCT Total # of Minutes Spent Total Time Spent with Patient: Total time spent is greater than 50% in coordination of care (as documented) at patient's floor/unit and/or counseling patient: Coding Level of Care Code 03169 SUB INP/OBS CARE 2/35MIN Diagnoses Closed sacral fracture S32.10XA Gastroesophageal reflux disease K21.9 Ambulatory dysfunction R26.2 Uncontrolled pain R52
[2024-04-02] MEDS ORDERED: CYCLOBENZAPRINE HCL 5 MG TAB PO PRN (09:08)
--- NOTE | 2024-04-02 09:51 | XRay Report ---
EXAM: Radiograph of the Abdomen 1 View INDICATION: Evaluate stool burden TECHNIQUE: Frontal supine view of the abdomen/pelvis. COMPARISON: 03/28/2024 FINDINGS: Limitations: None. Gastrointestinal tract: Stable moderate amounts of diffuse colonic stool. No intestinal distention. Organs: Visualized organ shadows appear grossly normal. Bones/joints: No fracture, erosion or dislocation. Soft tissues: No abnormality noted. No radiopaque foreign body noted. IMPRESSION: Stable moderate amounts of diffuse colonic stool. ACT 112: Negative or not required by law. Electronically signed by Tiff Hoffman 04-02-2024 09:51 AM
[2024-04-02] MEDS: bisacodyL 10 MG SUPP PR PRN (12:59)
[2024-04-02] MEDS: MAGNESIUM HYDROXIDE SUSP 30 ML UDC PO PRN (15:15)
[2024-04-02] MEDS ORDERED: POLYETHYLENE (MIRALAX) 17 GM PACK PO PRN (16:42)
[2024-04-02 19:58] VITALS: RESP 16
[2024-04-02] MEDS: ACETAMINOPHEN 500 MG TAB PO PRN (20:07)
[2024-04-02] MEDS: CYCLOBENZAPRINE HCL 5 MG TAB PO PRN (20:08)
[2024-04-03 07:51] VITALS: PULSE 98
[2024-04-03 08:44] LABS: BUN Creatinine Ratio 43.7 (10-20); Calcium 8.9 mg/dl (8.6-10.3); Creatinine Clr Calc Pharmacy 42.4 ml/min; Potassium 4.6 mmol/L (3.5-5.1)
--- NOTE | 2024-04-03 08:54 | Hospitalist Progress Note ---
Date of Service April 03, 2024 Assessment & Plan (1) Closed sacral fracture: Plan: Acute nondisplaced bilateral sacral ala fractures on imaging 03/28 with ongoing/uncontrolled pain and inability to take care of herself at home. No new injury/fall since that time but poor PO intake and associated constipation 2nd to decreased mobility 2nd to fracture Vit D wnl Orthopedics consulted - WB as tolerated with walker, added calcitonin nasal spray Pain control: continue calcitonin nasal spray, tylenol, low dose oxycodone. Lidocaine patch, heating pad. Flexeril 5mg PO x 1 overnight, will make 5mg prn but cautious w/ elderly Bowel regimen: colace BID, senna, miralax TID.. KUB to eval stool burden but +BS on exam/flatus today and will monitor for dulcolax suppository afternoon 04/03 KUB w/ colonic stool, suppository given and BM w/ diarrhea following and plac ed miralax to prn/holding colace/senna PT/OT consults still pending but plan for IPR at [facility] CM to follow Messaged PT group today/repeat therapy consults placed as not seen since placed 03/31 and need for rehab at [facility] DVT proph: Lovenox SQ once daily (2) Gastroesophageal reflux disease: Plan: pepcid continued, increased to BID w/ NSAIDs No issues reported (3) Ambulatory dysfunction: Plan: await therapy evals as above, WB as harris w/ walker (4) Uncontrolled pain: Plan: monitor response to tx as above, escalation as needed. added flexeril as above, bowel regimen as outlined Plan DVT proph: Lovenox SQ ordered while inpatient Dispo: continued inpatient stay, therapy evals pending. Added flexeril, KUB to eval stool burden/suppository if needed Admission and Anticipated Discharge Date Admission Date: March 31, 2024 Subjective Eval this morning, moved bowels. Pain stable, would like home w/ daughter. Will message CM/notify to arrange for HH (but will be to her house). Discussed make tylenol 1gm TID at home, alternative w/ ibuprofen, low dose oxy as needed. Results & Data Results & Data Vital Signs (Past 12 Hours) Vital Signs Temp Pulse Resp BP Pulse Ox O2 Del Method 04/03/24 07:48 36.5 C 98 H 16 144/84 H 96 Room Air PG Care Time/CCT Total # of Minutes Spent Total Time Spent with Patient: Total time spent is greater than 50% in coordination of care (as documented) at patient's floor/unit and/or counseling patient: Coding Diagnoses Closed sacral fracture S32.10XA Gastroesophageal reflux disease K21.9 Ambulatory dysfunction R26.2 Uncontrolled pain R52
--- NOTE | 2024-04-03 09:37 | Discharge Summary ---
Discharge Summary Date of Service April 03, 2024 Principal Dx & Hospital Course #1 = Principal Diagnosis (1) Closed sacral fracture: Acute nondisplaced bilateral sacral ala fractures on imaging 03/28 with ongoing/uncontrolled pain and inability to take care of herself at home. No new injury/fall since that time but poor PO intake and associated constipation 2nd to decreased mobility 2nd to fracture Vit D wnl- consider outpt DEXA in follow up Orthopedics consulted -- WB as tolerated with walker, calcitonin nasal spray, pain control. Continued tylenol, oxycodone, toradol lidocaine patch and heating pad. Not much relief w/ flexeril than tylenol and held off further at ok but discussed with patient and daughter given improvement with PT/OT and just needing pain control and preference for daughter Vani to take home and working on getting equipment delivered. Discussed WBAT w/ walker (has walker) at discharge, continued 1gm tylenol q8h scheduled for now and prn ibuprofen. Oxycodone 2.5mg as needed has been sent and copious BM following aggressive bowel regimen on admission and instructed to continued OTC miralax/colace as needed if recurs. Was on Lovenox SQ for DVT prophylaxis prior to discharge. CM arranging for HH at ok to daughter tomasa. Outpt ortho f/u at ok, PCP. (2) Gastroesophageal reflux disease: stable/no issues but did increase H2 to BID w/ NSAIDs and discussed continue while taking prn ibuprofen but can back to once daily if no issues. (3) Ambulatory dysfunction: Therapy evals as above, WB as harris w/ walker at ok and has walker. HH therapy at ok (4) Uncontrolled pain: Improved, able to ambulate w/ walker w/ PT/OT. To continue tylenol q8h, ibuprofen, lidocaine patch, heat and low dose oxycodone as needed at ok Notes For Next Care Provider Follow up orthopedics 1-2 weeks, ongoing pain control and HH services arranged at ok. WBAT w/ walker per orthopedics and had improvement in pain prior to ok but too well with therapy for IPR and daughter req HH and taking her home with her for meantime. Had only been taking 1 tablet tylenol for pain, rec 1000mg around the clock in meantime w/ ibuprofen prn given effectiveness APAP and prn oxy for breakthrough. Consider continued calcitonin spray if ongoing pain but typically too $$$. Medication Changes From Visit Tylenol 1gm q8h Ibuprofen 400mg q8h prn Lidocaine patch Oxycodone 2.5mg prn Miralax/colace or OTC bowel regimen as needed encouraged Admission HPI Per Admitting Provider 79yo female presented for ongoing pain control/inability to care for herself at home with recent ER visit for LBP w/ imaging noting b/l sacral alar fractures and was offered pain medication but was comfortable going home on tylenol with orthopedic follow up. Fxs suspected 2nd to fall several weeks prior. She reports was going out front door/one step and came down on buttocks. Lives alone, came back to ER for inability to care for herself/want for rehab and ongoing /uncontrolled pain. No new falls/injury from ER visit 03/28. Per ER [facility], unable to dc to [facility] from rehab 2nd to insurance and need for qualifying inpatient stay. They have discussed w/ ortho, Herickoff, walker/pain control, Dr Go over weekend covering. Patient eval in D1A, daughter at bedside. Laying in bed, ongoing discomfort. Discussed trial Toradol IV x 1 now, if effective can continue. No loss of bowel/bladder function but does note has been having some constipation 2nd to poor PO intake/pain, likely immobilization Does take pepcid at night for reflux, will make BID w/ NSAIDs. Will order lidocaine patch, baclofen if need for spasm. Continue APAP fever/headache or mild pain. 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 Has all eye drops except travoprost and will need ordered. Bowel regimen to be ordered, therapy evals and rehab placement hopefully with [facility]. She is typically a very active person at baseline. Daughter plans to take her w/ her to her home after acute IPR and req hospital bed. Daughter inquiring about getting hospital beds/etc and will take home w/ her after acute IPR stay. No fever/chills, CP/SOB, numbness/tingling, loss of bowel/bladder function, however does endorse poor PO intake due to pain as well as constipation. Takes Vit D at baseline 2000 IU. Full code. Admission Exam Per Admitting Provider General: 79yo female sitting up in bed, daughter at bedside, NAD but mildly uncomfortable HEENT: head atraumatic, normocephalic, mm slightly dry, trachea midline Resp: CTA, no w/c/r, on room air CV: RRR, no significant m/r/g, no pitting edema GI: +BS, slight distension, no overt tenderness/guarding/rebound : no vazquez MSK/Neuro: + tenderness b/l sacrum, no significant hematoma/ecchymosis, NVI, dorsiflexion/plantar flexion intact +discomfort to LB w/ sitting up in bed/position changes Psych:AOx3 Discharge Exam General: 79yo sitting up in chair, just finished working with therapy. appears improved HEENT: head atraumatic, normocephalic, mm improved, trachea midline Resp: even/unlabored, no wheezing/rales, on room air CV: RRR, no significant m/r/g no pitting edema GI: +BS, soft/NT no vazquez MSK/Neuro: + tenderness b/l sacrum (decreased), no significant hematoma/ecchymosis, NVI, dorsiflexion/plantar flexion intact. improvement in ability to get up from seated position/positional changes. pulses present/calves nontender Psych:AOx3, cooperative Discharge Plan Discharge Items Patient Disposition: Home - Home Health Services Reason For Visit: SACRAL FX, UNCONTROLLED PAIN, NEED REHAB Discharge Diagnosis: sacral fracture, uncontrolled pain Condition on Discharge: Good Goals: You have been hospitalized for an acute medical problem. During your stay at [facility], we have made an effort to correct the problem that brought you to the hospital while keeping you as comfortable as possible. Medications were used to bring your condition under control and your discharge instructions will include directions for any medications you should take after leaving the hospital. Please make sure you see your Primary Care Provider as part of your follow up plan. Activity: As commented below Activity Comment: weight bearing as tolerated with walker Non-emergency contact: Primary Care Provider and Surgeon Call non-emergency contact if: you have any medication questions, your symptoms worsen, your pain is not controlled, your pain is worsening, your pain is unusual for you and you have a fever Follow-up/Referrals: Lupillo Go MD [Surgeon] - 04/19/24 2:30 pm (Follow up outpatient in 1-[address] Go) Miguel A Murphy DO [Primary Care Provider] - 04/06/24 11:30 am Diet: Regular Addtl Attending Provider Instructions: You have been hospitalized for uncontrolled pain/sacral fracture. Orthopedics were consulted and you are to be weight bearing as tolerated with walker per Dr Go and cleared by PT/OT consults for home health services. For pain control at discharge: Tylenol 1,000mg (2 of 500mg tablets) every 8 hours around the clock Ibuprofen 400-600mg every 8 hours as needed Oxycodone 2.5mg (half tablet) for breakthrough pain. Lidocaine patch once daily Can use over the counter miralax/colace if issues with moving bowels. Take pepcid twice daily if taking ibuprofen to prevent reflux issues. Please stay well hydrated to prevent worsened constipation or issues with urination but did not appear to have any infection. Please follow up with orthopedics and primary care in the next 1-2 weeks. Please return to the ER with any fever/chills, worsening pain or for any other symptoms concerning for you. It has been a pleasure being a part of the medical team providing for you while you have been in the hospital. Take care! Pending Studies at Discharge: No Stand-Alone Forms: My [facility], Pain - Opioid Pain Management, Smoking Cessation Medications and DC Order Prescriptions: New lidocaine 5 % Adhesive Patch,Medicated 1 patch transdermal QAM Qty: 15 0RF ibuprofen 400 mg tablet 400 mg PO Q8H PRN (Reason: pain) Qty: 20 0RF oxycodone 5 mg tablet 2.5 mg PO Q6H PRN (Reason: pain) Qty: 14 0RF Continued valacyclovir 500 mg tablet 500 mg PO QAM travoprost 0.004 % drops 1 drops OPB QPM calcium carbonate-vitamin D3 500-100 mg-unit tablet,chewable 1 tab PO QAM fluorometholone 0.1 % drops,suspension 1 drp OPL QAM Patient Comments: 1 drp OP LEFT EYE ONCE DAILY; famotidine 20 mg tablet 20 mg PO QPM loratadine 10 mg tablet 10 mg PO DAILY PRN (Reason: allergies) Prolia 60 mg/mL syringe 60 mg subcut .every 6 months calcium carbonate [Tums] 200 mg calcium (500 mg) tablet,chewable 200 mg PO HS Thera Tears 1 drp OPL BID PRN (Reason: Dry Eyes) brimonidine [Alphagan P] 0.1 % drops 1 drp OPL [facility] Saline Nasal 0.65 % Aerosol,[place] 1 - 2 spray INTRANASAL BID PRN (Reason: allergies) Changed acetaminophen [Acetaminophen Extra Strength] 500 mg tablet 1,000 mg PO Q8H Qty: 0 0RF Held meloxicam 7.5 mg tablet 7.5 mg PO DAILY Qty: 14 0RF Hold Instructions: hold while taking ibuprofen to prevent any bleeding issues Discharge Orders: Discharge Order (Routine); Ordered 04/03/24 Ordered By: Mabel Cleary/Other Patient Handouts: Fall Prevention Assessing Risk Admission Data Admit Date/Time: 03/31/24 18:18 Attending Provider: Kavitha Shane Admit Provider: Kenn Miller Primary Care Provider: Miguel A Murphy Other Providers: Kenn Miller; Lupillo Go; [facility] Other Interventions: Discharge Summary Assessment (RN) Last Done: 04/03/24 09:55 Hospital Stay Data Consultations 03/31/24 17:18 ED Decision to Admit Stat 03/31/24 20:34 Consult Orthopedic Surgery Routine Diagnostic Imagining Performed KUB X-Ray 04/02/24 08:44 EXAM: Radiograph of the Abdomen 1 View INDICATION: Evaluate stool burden TECHNIQUE: Frontal supine view of the abdomen/pelvis. COMPARISON: 03/28/2024 FINDINGS: Limitations: None. Gastrointestinal tract: Stable moderate amounts of diffuse colonic stool. No intestinal distention. Organs: Visualized organ shadows appear grossly normal. Bones/joints: No fracture, erosion or dislocation. Soft tissues: No abnormality noted. No radiopaque foreign body noted. IMPRESSION: Stable moderate amounts of diffuse colonic stool. ACT 112: Negative or not required by law. Electronically signed by Tiff Hoffman 04-02-2024 09:51 AM Discharge Instructions Given to Patient (Per Discharging Provider) You have been hospitalized for uncontrolled pain/sacral fracture. Orthopedics were consulted and you are to be weight bearing as tolerated with walker per Dr Go and cleared by PT/OT consults for home health services. For pain control at discharge: Tylenol 1,000mg (2 of 500mg tablets) every 8 hours around the clock Ibuprofen 400-600mg every 8 hours as needed Oxycodone 2.5mg (half tablet) for breakthrough pain. Lidocaine patch once daily Can use over the counter miralax/colace if issues with moving bowels. Take pepcid twice daily if taking ibuprofen to prevent reflux issues. Please stay well hydrated to prevent worsened constipation or issues with urination but did not appear to have any infection. Please follow up with orthopedics and primary care in the next 1-2 weeks. Please return to the ER with any fever/chills, worsening pain or for any other symptoms concerning for you. It has been a pleasure being a part of the medical team providing for you while you have been in the hospital. Take care! Total Time Total Time Spent Total Time Spent (In Minutes): 40 Coding Level of Care Code 74908 INP/OBS DISCH >30 MIN Diagnoses Closed sacral fracture S32.10XA Gastroesophageal reflux disease K21.9 Ambulatory dysfunction R26.2 Uncontrolled pain R52
[2024-04-03 11:57] VITALS: BP 158/87; TEMP 98.1; O2SAT 99
== END 2024-04-03 13:12 | disposition home health service (06) | DRG 552 ==
LOC: ED 15:12 → EDINP 18:18 → SUATTDRO 18:18 → 3W 20:34

== ENCOUNTER 2024-08-07 16:04 | Observation (INO) ==
[2024-08-07 16:30] LABS: Hematocrit (blood only) 40.4 % (37.0-47.0); Hemoglobin 13.8 g/dl (12.0-16.0); Immature Granulocytes # (auto) 0.04 K/uL (0.01-0.20); Immature Granulocytes % (auto) 0.4 %; Mean Corpuscular Hemoglobin 31.9 pg (25.0-34.0); Mean Corpuscular Volume 93.5 fL (80.0-100.0); Platelet Count 227 K/uL (130-400); RDW Standard Deviation 46.4 fL (36.4-46.3); Red Blood Count 4.32 M/uL (4.20-5.40); White Blood Count 11.40 K/ul (4.8-10.8)
[2024-08-07 16:43] LABS: Alanine Aminotransferase 10.0 U/L (7-52); Albumin Globulin Ratio 1.5 (0.9-2); Alkaline Phosphatase 53.0 U/L (34-104); Anion Gap 6.0 (3-11); Bilirubin,Total 0.5 mg/dl (0.2-1.0); Blood Urea Nitrogen 26.0 mg/dl (6-23); Calcium 9.5 mg/dl (8.6-10.3); Carbon Dioxide 29.0 mmol/L (21-32); Chloride 102.0 mmol/L (98-107); Creatinine Clr Calc Pharmacy 38.7 ml/min; Globulin 2.8 gm/dl (2.5-4.0); Glucose 116.0 mg/dl (70-99(Fasting)); Potassium 4.2 mmol/L (3.5-5.1); Sodium 137.0 mmol/L (136-145); Total Protein 7.1 gm/dl (6.0-8.3)
[2024-08-07 16:55] LABS: INR 1.0 (0.9-1.1); Partial Thromboplastin Time 26 Seconds (21-31); Prothrombin Time 10.6 Seconds (9.0-12.0)
--- NOTE | 2024-08-07 17:57 | XRay Report ---
Clinical History: Chest pain Technique: A frontal view of the chest was obtained Comparison is made to the prior examination dated 09/04/2019 Findings: There is new interstitial prominence in the left lung base, likely due to atelectasis. The heart size is within normal limits. No pleural effusion or pneumothorax is seen. There is an unchanged calcified granuloma in the left midlung No fracture is noted. No foreign body is seen Impression: 1. New left lung base opacity, likely due to atelectasis 2. Unchanged left midlung nodule, likely a benign granuloma ACT 112: Positive. There are findings on this exam that require communication between the performing entity and the patient following Patient Test Result Information Act ([place] ACT 112) guidelines. Electronically signed by Feliz Bergeron 08-07-2024 5:57 PM
[2024-08-07] MEDS: SODIUM CHLORIDE 0.9% 500 ML IV ONE (18:18)
--- NOTE | 2024-08-07 18:29 | Emergency Department Note ---
Impression & Plan Forgetfulness, Acute confusion ED Provider Note NAME: HALLIE BOWLING AGE: 79 SEX: F : 1945 ARRIVES VIA: Walk-In INFORMANT: Patient, ED PROVIDER(S): Kelly Raymundo MD CHIEF COMPLAINT: Confusion HPI: This is a 79-year-old female presented for confusion. Patient states that she is having difficulty remembering. She is with her daughter, son-in-law and granddaughter. Daughter provides most of the history and states that since around 10:30 AM, patient has had confusion. She does not member certain things such as conversations that happened. She is not member what she had for breakfast other simple things that she would use to remember. She has number of the events of yesterday as well. She has difficulty walking, talking, finding words, extremity usage. She never had a stroke before. She has had reported transient global amnesia ROS: See above HPI for pertinent positives & negatives. A total of 10 systems reviewed and were otherwise negative. PAST MEDICAL HISTORY: See Below PAST SURGICAL HISTORY: See Below FAMILY HISTORY: See Below SOCIAL HISTORY: See Below HOME MEDICATIONS: See Below ALLERGIES: See Below VITALS: See Below PHYSICAL EXAMINATION: General: resting comfortably in no acute distress Head: Normocephalic and atraumatic Eyes: Normal inspection, extraocular muscles intact Ear, nose, throat: Normal external exam Neck: Normal range of motion Respiratory: lungs clear to auscultation bilaterally Cardiovascular: Regular rate/rhythm, no murmur GI: soft, nontender, no guarding or rebound Extremities: nontender, moves all extremities Neuro: The patient awake and alert x 4, appropriately conversive, no focal deficits, symmetric faces, no dysmetria on [id number], symmetric strength, no motor drift NIH 0 Skin: Warm, dry, and intact MEDICAL DECISION MAKING: This is an 79-year-old female presenting for confusion. Patient has no currently neurologic deficits on exam. She appears to have isolated forgetfulness. Consider transient global amnesia again versus delirium such as UTI. - Bloodwork is reviewed showing no significant leukocytosis, anemia, electrolyte or creatinine abnormality. Minimally elevated troponin at 14.7. - ECG independently interpreted by me with normal sinus rhythm, rate of 81, left axis deviation, normal VT, normal QRS, normal QTc, no ST segment elevations consistent with STEMI criteria - CT of the head revealed cerebral atrophy and chronic small vessel ischemic disease without other acute findings. - X-ray of the chest reveals new left lung base opacity concerning for atelectasis. Otherwise benign granuloma noted - At this time patient symptoms have not resolved. She has continued confusion but otherwise no neurologic deficits. -Urinalysis negative for UTI - Due to prolonged state of confusion, will admit the patient Differential diagnosis: Stroke, TIA, transient global amnesia, delirium, UTI Independent History obtained from: Daughter, son-in-law, granddaughter Diagnostics interpreted by me: ECG: See above Cardiac Monitoring: An order was placed for continuous cardiac monitoring. The monitor shows a rate of 88 with sinus rhythm. Past Med/Surg History Problem List (Updated 08/07/24 @ 22:16 by Kelly Raymundo MD) Acute confusion (Acute) Forgetfulness (Acute) Uncontrolled pain (Acute) Ambulatory dysfunction (Acute) Closed sacral fracture (Acute ~03/14/24) Acute nondisplaced bilateral sacral ala fractures . Cerebral microvascular disease Carpal tunnel syndrome, right Difficulty urinating Microscopic hematuria Urinary symptom or sign Urge incontinence Urinary retention Dyslipidemia (Acute) Osteoporosis with fracture (Acute) Followed by Dr. Beltran, Last Dexa Gastroesophageal reflux disease (Acute) Asthma (Acute) inhaler prn Medical History Hypertension Transient global amnesia History of colon polyps Osteoarthritis Basal cell carcinoma of upper lip Blindness of left eye History of Mohs micrographic surgery for skin cancer Glaucoma Vitamin D deficiency Surgical History History of left breast biopsy History of colonoscopy with polypectomy (~10/2019) History of oral surgery History of wisdom tooth extraction History of eye surgery History of left cataract extraction History of automated lamellar keratoplasty History of tooth extraction History of tonsillectomy and adenoidectomy Family History Mother Pancreatic cancer Father Stomach cancer Aunt Breast cancer Other No family history of adverse response to anesthesia Denies family history of Ovarian cancer Prostate cancer Myocardial infarction Colorectal cancer Social History Smoking Status: Never smoker Tobacco Type: Cigarettes Age Started Using Tobacco: 14; Age Quit Using Tobacco: 28; packs per day: 1; Second Hand Exposure: No; Do You Dip or Chew Tobacco: No; Hx Alcohol Use: No Hx Substance Use: No Preferred Language: Argentine Communication Ability: Effective Visual Impairment: Limited Hearing Ability: Normal Terminal System Operator Required: No Beliefs That Will Affect Care: None marital status: / Current Living Situation: Alone current occupational status: retired How many Children do You have: 2 Feels Safe at Home: Yes Childhood Exposure to Second-Hand Smoke: Yes caffeine: Yes (drinks coffee in mornings and sometimes tea ) Dental Care, Regularly: Yes Physical Activity Frequency: 1-2 Times per Week Physical Activity Frequency Comment: walks when she can Seatbelt Use: always Sunscreen Use: Yes Assistive Devices: Walker Allergies Allergies Allergy/AdvReac Type Severity Reaction Status Date / Time chloramphenicol Allergy Intermediate swelling Verified 08/07/24 18:59 latex Allergy Unknown Unknown Verified 08/07/24 18:59 prednisolone AdvReac Severe PRED FORTE Verified 08/07/24 18:59 EYE (CAUSED INCREASED PRESSURE) epinephrine AdvReac Intermediate "makes me Verified 08/07/24 18:59 even more uptight, heart racing" fluticasone AdvReac Intermediate "eyes got Verified 08/07/24 18:59 funny" salmeterol AdvReac Intermediate "eyes got Verified 08/07/24 18:59 funny" Sulfa (Sulfonamide AdvReac Intermediate yeast Verified 08/07/24 18:59 Antibiotics) infection Home Meds Home Medications Medication Instructions Recorded Confirmed calcium 500 mg (as carbonate)-D3 1 tab PO QAM 11/14/18 08/07/24 2.5 mcg (100 unit) chewable tablet travoprost 0.004 % eye drops 1 drops OPB QPM 11/14/18 08/07/24 valacyclovir 500 mg tablet 500 mg PO QAM 11/14/18 08/07/24 Thera Tears 1 drp OPL BID PRN Dry Eyes 11/01/20 08/07/24 calcium carbonate (Tums) 200 mg PO HS Acid Reflux 11/01/20 08/07/24 fluorometholone 0.1 % eye 1 drp OPL QAM 11/01/20 08/07/24 drops,suspension brimonidine 0.1 % eye drops 1 drp OPL AMHS 09/04/23 08/07/24 (Alphagan P) denosumab 60 mg/mL subcutaneous 60 mg subcut .[id number] 11/08/23 08/07/24 syringe (Prolia) loratadine 10 mg tablet 10 mg PO DAILY PRN allergies 11/08/23 08/07/24 sodium chloride 0.65 % nasal spray 1 - 2 spray intranasal BID PRN 03/31/24 08/07/24 aerosol (Saline Nasal) allergies acetaminophen 500 mg tablet 1,000 mg PO Q8H PRN Pain 08/07/24 08/07/24 (Acetaminophen Extra Strength) ibuprofen 200 mg tablet 400 mg PO Q6H PRN Pain 08/07/24 08/07/24 Previous Rx's Medication Instructions Recorded famotidine 20 mg tablet 20 mg PO BID #180 tabs 05/02/24 Results & Data (ED) Vital Signs Vital Signs - 24 hr 08/07/24 16:05 08/07/24 17:00 08/07/24 17:00 Temperature 36.5 C Temperature Source Temporal Artery Scan Pulse Rate 82 76 Pulse Rate [Apical] Pulse Rate from SpO2 Sensor Pulse Rhythm Regular Respiratory Rate 20 16 Respiratory Effort / Characteristics Respiratory Depth Blood Pressure 122/65 Blood Pressure [Left Arm] Blood Pressure Mean 84 Blood Pressure Mean [Left Arm] Pulse Oximetry 98 96 96 Oxygen Delivery Method Room Air Room Air Room Air Sepsis Recent Fever Within 48 Hours No Sepsis New/Unexplained Change in Mental Status N/A Sepsis Action Taken by Nursing No Action Required 08/07/24 17:02 08/07/24 17:10 08/07/24 19:27 Temperature Temperature Source Pulse Rate 79 Pulse Rate [Apical] 78 Pulse Rate from SpO2 Sensor 81 Pulse Rhythm Respiratory Rate 16 Respiratory Effort / Characteristics Non-Labored Spontaneous Respiratory Depth Normal Blood Pressure 147/79 H Blood Pressure [Left Arm] 134/71 Blood Pressure Mean 101 Blood Pressure Mean [Left Arm] 92 Pulse Oximetry 96 98 Oxygen Delivery Method Room Air Room Air Sepsis Recent Fever Within 48 Hours Sepsis New/Unexplained Change in Mental Status Sepsis Action Taken by Nursing 08/07/24 20:12 08/07/24 20:30 08/07/24 21:36 Temperature Temperature Source Pulse Rate 84 82 87 Pulse Rate [Apical] Pulse Rate from SpO2 Sensor 84 82 Pulse Rhythm Respiratory Rate 21 21 21 Respiratory Effort / Characteristics Respiratory Depth Blood Pressure 151/84 H 146/81 H 146/81 H Blood Pressure [Left Arm] Blood Pressure Mean 106 102 102 Blood Pressure Mean [Left Arm] Pulse Oximetry 98 97 97 Oxygen Delivery Method Room Air Room Air Room Air Sepsis Recent Fever Within 48 Hours Sepsis New/Unexplained Change in Mental Status Sepsis Action Taken by Nursing 08/07/24 22:08 Temperature Temperature Source Pulse Rate 88 Pulse Rate [Apical] Pulse Rate from SpO2 Sensor Pulse Rhythm Respiratory Rate 20 Respiratory Effort / Characteristics Respiratory Depth Blood Pressure 140/79 Blood Pressure [Left Arm] Blood Pressure Mean Blood Pressure Mean [Left Arm] Pulse Oximetry Oxygen Delivery Method Room Air Sepsis Recent Fever Within 48 Hours Sepsis New/Unexplained Change in Mental Status Sepsis Action Taken by Nursing Laboratory Data 08/07/24 16:15 08/07/24 16:15 Lab Results 08/07/24 08/07/24 Range/Units 16:15 18:19 WBC 11.40 H (4.8-10.8) K/ul RBC 4.32 (4.20-5.40) M/uL Hgb 13.8 (12.0-16.0) g/dl Hct 40.4 (37.0-47.0) % MCV 93.5 (80.0-100.0) fL MCH 31.9 (25.0-34.0) pg MCHC 34.2 (32.0-36.0) g/dL RDW Std Deviation 46.4 H (36.4-46.3) fL RDW Coeff of [place] 13.3 (11.5-14.5) % Plt Count 227 (130-400) K/uL MPV 9.6 (9.4-12.4) fL Immature Gran % (Auto) 0.4 % Neut % (Auto) 83.1 % Lymph % (Auto) 10.8 % [place] % (Auto) 5.4 % Eos % (Auto) 0.1 % Baso % (Auto) 0.2 % Neut # (Auto) 9.49 H (1.40-6.50) K/uL Lymph # (Auto) 1.23 (1.20-3.40) K/uL [place] # (Auto) 0.61 H (0.11-0.59) K/uL Eos # (Auto) 0.01 (0.00-0.50) K/uL Baso # (Auto) 0.02 (0.00-0.20) K/uL Immature Gran # (Auto) 0.04 (0.01-0.20) K/uL PT 10.6 (9.0-12.0) Seconds INR 1.0 (0.9-1.1) APTT 26 (21-31) Seconds PTT Ratio 1.0 Sodium 137 (136-145) mmol/L Potassium 4.2 (3.5-5.1) mmol/L Chloride 102 (98-107) mmol/L Carbon Dioxide 29 (21-32) mmol/L Anion Gap 6 (3-11) BUN 26 H (6-23) mg/dl Creatinine 0.77 (0.6-1.2) mg/dl Est Cr Clr Drug Dosing 38.7 ml/min eGFR 77.45 BUN/Creatinine Ratio 33.8 H (10-20) Glucose 116 H (70-99(Fasting)) mg/dl Calcium 9.5 (8.6-10.3) mg/dl Total Bilirubin 0.5 (0.2-1.0) mg/dl AST 18 (13-39) U/L ALT 10 (7-52) U/L Alkaline Phosphatase 53 (34-104) U/L Troponin I High Sens 14.7 H (0-14) pg/ml Total Protein 7.1 (6.0-8.3) gm/dl Albumin 4.3 (3.4-5.0) gm/dl Globulin 2.8 (2.5-4.0) gm/dl Albumin/Globulin Ratio 1.5 (0.9-2) Urine Color Yellow Urine Appearance Clear (Clear) Urine pH 7.0 (4.5-7.5) Ur Specific [place] 1.015 (1.000-1.030) Urine Protein Negative (Negative) Urine Glucose (UA) Negative (Negative) Urine Ketones 1+ H (Negative) Urine Blood Negative (Negative) Urine Nitrite Negative (Negative) Urine Bilirubin Negative (Negative) Urine Urobilinogen Negative (Negative) Ur Leukocyte Esterase Trace H (Negative) Urine WBC (Auto) 0-5 (0-5) /hpf Urine RBC (Auto) 0-2 (0-2) /hpf U Hyaline Cast (Auto) 0-2 (0-2) /lpf U Epithel Cells (Auto) 0-2 (0-2) /hpf Urine Bacteria (Auto) None Seen (None Seen) Urine Comment Administered Medications Discontinued Medications Sodium Chloride (Nss) 500 mls @ 999 mls/hr IV .Q31M ONE Stop: 08/07/24 18:27 Last Infusion: 08/07/24 19:08 Dose: Infused Documented By: Admin: 08/07/24 18:18 Dose: 999 mls/hr Documented By: EMILY Imaging Data Radiologist's Impression: Chest X-Ray 08/07/24 16:08 Clinical History: Chest pain Technique: A frontal view of the chest was obtained Comparison is made to the prior examination dated 09/04/2019 Findings: There is new interstitial prominence in the left lung base, likely due to atelectasis. The heart size is within normal limits. No pleural effusion or pneumothorax is seen. There is an unchanged calcified granuloma in the left midlung No fracture is noted. No foreign body is seen Impression: 1. New left lung base opacity, likely due to atelectasis 2. Unchanged left midlung nodule, likely a benign granuloma ACT 112: Positive. There are findings on this exam that require communication between the performing entity and the patient following Patient Test Result Information Act ([place] ACT 112) guidelines. Electronically signed by Feliz Bergeron 08-07-2024 5:[address] 08/07/24 17:57 Clinical History: Amnesia Technique: Axial computed tomography images were obtained of the brain without intravenous contrast. Comparison is made to the MRI dated 09/04/2023 Findings: There is diffuse cerebral atrophy, within expected limits for the patient's age. Areas of decreased attenuation are seen within the periventricular white matter, likely representing chronic small vessel ischemic disease. There is unchanged prominence of the prefrontal extra-axial space bilaterally, likely due to the cerebral atrophy. There is no definite sign of acute or old infarction. No intracranial hemorrhage is evident. No definite mass lesion is seen on this noncontrast examination. There is no midline shift or other form of herniation. No hydrocephalus is seen. No fracture is identified. The orbits and the visualized paranasal sinuses appear unremarkable. The mastoid air cells appear clear. Impression: 1. Cerebral atrophy and chronic small vessel ischemic disease 2. Otherwise unremarkable noncontrast CT of the brain Electronically signed by Feliz Bergeron 08-07-2024 6:48 PM Discharge Plan Visit Data Chief Complaint: Confusion Stated Complaint: CANNOT REMEMBER MOST OF THE DAY ED Provider: Kelly Raymundo Discharge Problem: Forgetfulness, Acute confusion Patient Disposition: Admitted As Inpatient Condition: Fair Discharge Instructions Interventions: ED Discharge Assessment Last Done: 08/07/24 22:08 Forms Stand Alone Forms: [facility] Prescriptions Prescriptions: No Action famotidine 20 mg tablet 20 mg PO BID Qty: 180 3RF valacyclovir 500 mg tablet 500 mg PO QAM travoprost 0.004 % drops 1 drops OPB QPM calcium carbonate-vitamin D3 500-100 mg-unit tablet,chewable 1 tab PO QAM fluorometholone 0.1 % drops,suspension 1 drp OPL QAM Patient Comments: 1 drp OP LEFT EYE ONCE DAILY; loratadine 10 mg tablet 10 mg PO DAILY PRN (Reason: allergies) Prolia 60 mg/mL syringe 60 mg subcut .[id number] calcium carbonate [Tums] 200 mg calcium (500 mg) tablet,chewable 200 mg PO HS Thera Tears 1 drp OPL BID PRN (Reason: Dry Eyes) brimonidine [Alphagan P] 0.1 % drops 1 drp OPL AMHS Saline Nasal 0.65 % Aerosol,[place] 1 - 2 spray INTRANASAL BID PRN (Reason: allergies) ibuprofen 200 mg Tablet 400 mg PO Q6H PRN (Reason: Pain) acetaminophen [Acetaminophen Extra Strength] 500 mg tablet 1,000 mg PO Q8H PRN (Reason: Pain) Referrals Referrals: Miguel A Murphy DO [Primary Care Provider] -
[2024-08-07 18:37] LABS: Appearance Urine Clear (Clear); Bacteria Urine Automated None Seen (None Seen); Cast Urine Automated 0-2 /lpf (0-2); Epithelial Cell Urine Auto 0-2 /hpf (0-2); Glucose Urine UA Negative (Negative); RBC Urine Automated 0-2 /hpf (0-2); WBC Urine Automated 0-5 /hpf (0-5)
--- NOTE | 2024-08-07 18:49 | CT Scan Report ---
Clinical History: Amnesia Technique: Axial computed tomography images were obtained of the brain without intravenous contrast. Comparison is made to the MRI dated 09/04/2023 Findings: There is diffuse cerebral atrophy, within expected limits for the patient's age. Areas of decreased attenuation are seen within the periventricular white matter, likely representing chronic small vessel ischemic disease. There is unchanged prominence of the prefrontal extra-axial space bilaterally, likely due to the cerebral atrophy. There is no definite sign of acute or old infarction. No intracranial hemorrhage is evident. No definite mass lesion is seen on this noncontrast examination. There is no midline shift or other form of herniation. No hydrocephalus is seen. No fracture is identified. The orbits and the visualized paranasal sinuses appear unremarkable. The mastoid air cells appear clear. Impression: 1. Cerebral atrophy and chronic small vessel ischemic disease 2. Otherwise unremarkable noncontrast CT of the brain Electronically signed by Feliz Bergeron 08-07-2024 6:48 PM
--- NOTE | 2024-08-07 21:27 | History & Physical Report ---
Date of Service August 07, 2024 Assessment & Plan (1) Acute confusion: (2) Forgetfulness: Plan 79 y/o female with PMH of GERD. glaucoma, Vitamin D deficiency , asthma, osteoporosis, cerebral microvascular disease here due to amnesia. Multiple family members at bedside. Patient with known history of transient global amnesia attack on August last year. All stroke workup including MRI of the brain CTA head and neck were negative at that time. Symptoms started between 10am and and 1pm today. No other neuro deficit identify by family members. Patient unable to remember short term memories, unable to remember long-term memories (who's the president). This time symptoms had been present for longer time. Patient will be admitted for further work up Anterograde amnesia | Acute confusion - Not resolved. Unable to recall short term memories and termite inspector memories?. Similar event on 08/2023 diagnosed with transient global amnesia - No neuro deficits. Oriented to person, placed and situation on my exam - Patient with history of dyslipidemia - Stroke work up form 08/2023 reviewed: - TTE with bubble negative for shunt - CTA head and neck - MRI head negative - will admit to med/ tele - HbA1c, fasting lipid panel, B12 level, CRP, ESR ordered - MRI wo contrast ordered - PT/ OT eval in the morning - If symptoms persist in the morning, consider neuro consult Hx of HSV infections - continue Valacyclovir suppression DVT prophylaxis Lovenox History of Present Illness Primary Care Provider: Miguel A Murphy, 79 y/o female with PMH of GERD. glaucoma, Vitamin D deficiency , asthma, osteoporosis, cerebral microvascular disease here due to amnesia. Multiple family members at bedside. Patient with known history of transient global amnesia attack on August last . All stroke workup including MRI of the brain CTA head and neck were negative at that time. Symptoms started between 10am and and 1pm today. No neuro deficit identify by family members. Patient unable to remember short term memories, similar as last summer. This time symptoms had persisted. Family is worry that know she's unable to remember termite inspector memories as who's the president. Patient is oriented to person, placed and situation. She lives alone, normal she is able do all her ADLs. Denied any fever, chills, nausea. Denied any dysuria, frequency or urgency. Denied any chest pain, SOB or palpitations. Denied any new mediations. Denied any recent sickness. Denied any headaches. No sick contacts, no recent travels. No visual disturbances. She can identify all her family members Allergies Allergy/AdvReac Type Severity Reaction Status Date / Time chloramphenicol Allergy Intermediate swelling Verified 08/16/24 14:04 latex Allergy Unknown Unknown Verified 08/16/24 14:04 prednisolone AdvReac Severe PRED FORTE Verified 08/16/24 14:04 EYE (CAUSED INCREASED PRESSURE) epinephrine AdvReac Intermediate "makes me Verified 08/16/24 14:04 even more uptight, heart racing" fluticasone AdvReac Intermediate "eyes got Verified 08/16/24 14:04 funny" salmeterol AdvReac Intermediate "eyes got Verified 08/16/24 14:04 funny" Sulfa (Sulfonamide AdvReac Intermediate yeast Verified 08/16/24 14:04 Antibiotics) infection Home Medications Medication Instructions Recorded Confirmed Type calcium 500 mg (as carbonate)-D3 1 tab PO QAM 11/14/18 08/16/24 History 2.5 mcg (100 unit) chewable tablet travoprost 0.004 % eye drops 1 drops OPB QPM 11/14/18 08/16/24 History valacyclovir 500 mg tablet 500 mg PO QAM 11/14/18 08/16/24 History Thera Tears 1 drp OPL BID PRN Dry Eyes 11/01/20 08/16/24 History calcium carbonate (Tums) 200 mg PO HS Acid Reflux 11/01/20 08/16/24 History fluorometholone 0.1 % eye 1 drp OPL QAM 11/01/20 08/16/24 History drops,suspension brimonidine 0.1 % eye drops 1 drp OPL AMHS 09/04/23 08/16/24 History (Alphagan P) denosumab 60 mg/mL subcutaneous 60 mg subcut .[id number] 11/08/23 08/16/24 History syringe (Prolia) loratadine 10 mg tablet 10 mg PO DAILY PRN allergies 11/08/23 08/16/24 History sodium chloride 0.65 % nasal spray 1 - 2 spray intranasal BID PRN 03/31/24 08/16/24 History aerosol (Saline Nasal) allergies famotidine 20 mg tablet 20 mg PO BID #180 tabs 05/02/24 08/16/24 Rx acetaminophen 500 mg tablet 1,000 mg PO Q8H PRN Pain 08/07/24 08/16/24 History (Acetaminophen Extra Strength) ibuprofen 200 mg tablet 400 mg PO Q6H PRN Pain 08/07/24 08/16/24 History mecobalamin (vitamin B12) 1,000 1,000 mcg PO DAILY #30 tabs 08/08/24 08/16/24 Rx mcg chewable tablet (B12 Active) omega 3 PO DAILY 08/15/24 08/16/24 History turmeric PO BID 08/15/24 08/16/24 History Past Med/Surg History Problem List (Updated 08/07/24 @ 22:16 by Kelly Raymundo MD) Acute confusion (Acute) Forgetfulness (Acute) Uncontrolled pain (Acute) Ambulatory dysfunction (Acute) Closed sacral fracture (Acute ~03/14/24) Acute nondisplaced bilateral sacral ala fractures . Cerebral microvascular disease Carpal tunnel syndrome, right Difficulty urinating Microscopic hematuria Urinary symptom or sign Urge incontinence Urinary retention Dyslipidemia (Acute) Osteoporosis with fracture (Acute) Followed by Dr. Beltran, Last Dexa Gastroesophageal reflux disease (Acute) Asthma (Acute) inhaler prn Medical History Hypertension Transient global amnesia History of colon polyps Osteoarthritis Basal cell carcinoma of upper lip Blindness of left eye History of Mohs micrographic surgery for skin cancer Glaucoma Vitamin D deficiency Surgical History History of left breast biopsy History of colonoscopy with polypectomy (~10/2019) History of oral surgery History of wisdom tooth extraction History of eye surgery History of left cataract extraction History of automated lamellar keratoplasty History of tooth extraction History of tonsillectomy and adenoidectomy Family History Mother Pancreatic cancer Father Stomach cancer Aunt Breast cancer Other No family history of adverse response to anesthesia Denies family history of Ovarian cancer Prostate cancer Myocardial infarction Colorectal cancer Social History Smoking Status: Former smoker Tobacco Type: Cigarettes Age Started Using Tobacco: 14; Age Quit Using Tobacco: 28; packs per day: 1; Second Hand Exposure: No; Do You Dip or Chew Tobacco: No; Hx Alcohol Use: No Hx Substance Use: No Preferred Language: Portuguese Communication Ability: Effective Visual Impairment: Limited Hearing Ability: Normal Senior Customer Service Representative Required: No Beliefs That Will Affect Care: None marital status: / Current Living Situation: Alone Current Living Situation Comment: home alone current occupational status: retired How many Children do You have: 2 Feels Safe at Home: Yes Childhood Exposure to Second-Hand Smoke: Yes caffeine: Yes (drinks coffee in mornings and sometimes tea ) Dental Care, Regularly: Yes Physical Activity Frequency: 1-2 Times per Week Physical Activity Frequency Comment: walks when she can Seatbelt Use: always Sunscreen Use: Yes Assistive Devices: None Physical Exam Constitutional: WD/WN, vitals as above Eyes: PERRL, conjunctivae normal, anicteric sclerae ENMT: external ear and nose normal, oropharynx normal Respiratory: normal respiratory effort, lungs clear to auscultation Cardiovascular: RRR, no murmur, no edema Musculoskeletal: no cyanosis or clubbing, extremities motor strength 5/5 Neurologic: normal touch/pain/proprioception, CN's II-XI intact bilaterally, deep tendon reflexes 2+ bilaterally, moves all extremities and awake Speech / Cognition: normal speech Motor/Sensory: no tremor Coordination: + abnormal [id number] test Results & Data Results & Data Vital Signs (Past 12 Hours) Vital Signs Temp Pulse Pulse Resp BP BP Pulse Ox 08/07/24 20:30 82 21 146/81 H 97 08/07/24 20:12 84 21 151/84 H 98 08/07/24 19:27 147/79 H 98 08/07/24 17:10 79 08/07/24 17:02 78 16 134/71 96 08/07/24 17:00 76 16 96 08/07/24 17:00 96 08/07/24 16:05 36.5 C 82 20 122/65 98 O2 Del Method 08/07/24 20:30 Room Air 08/07/24 20:12 Room Air 08/07/24 19:27 Room Air 08/07/24 17:10 08/07/24 17:02 Room Air 08/07/24 17:00 Room Air 08/07/24 17:00 Room Air 08/07/24 16:05 Room Air Code Status & VTE Plan VTE Prophylaxis Plan VTE Prophylaxis will be ordered: Yes Supervising Physician Co-Signing Physician Notes I personally saw and examined the patient. I independently reviewed the labs, EKG, imaging, problem list, medication list, past medical history and family history. I verified all guardado points and agree with resident physician Dr Celi Pittman MD with the following exceptions and/or additions: 79 year old female presents to the ER with acute confusion episode. No family at bedside when seen, Please see history above. The patient feels she is back to her baseline at this time. O/E HS RRR, no murmurs, Chest CTAB, Abdo SNT, CN2-> 12 intact, no extremity weakness A/P Suspected transient global amnesia - MRI brain, if negative suspect TGA, if family concerned for any ongoing symptoms consider neurology evaluation Resident Activity Tracking Resident Involvement: Resident Care Provided Care Provided: Adult Hospital Medicine
[2024-08-07] MEDS ORDERED: MELATONIN 3 MG TAB PO PRN (22:36)
[2024-08-07] MEDS ORDERED: ONDANSETRON INJ 2 MG/ML 2 ML VIAL IV PRN (22:36)
[2024-08-07] MEDS ORDERED: PHARMACIST DISCHARGE MED REC CONSULT PRN (22:36)
[2024-08-07] MEDS ORDERED: ALUMINUM/MAGNESIUM SUSP 30 ML UDC PO PRN (22:36)
[2024-08-07] MEDS ORDERED: POLYETHYLENE (MIRALAX) 17 GM PACK PO PRN (22:36)
[2024-08-07] MEDS: ENOXAPARIN INJ 40 MG/0.4 ML SYR SQ SCH (23:42)
[2024-08-07] MEDS: ACETAMINOPHEN 500 MG TAB PO PRN (23:43)
--- NOTE | 2024-08-08 02:08 | Magnetic Resonance Report ---
Exam(s): MRI HEAD Without Contrast EXAM: MR Head Without Intravenous Contrast CLINICAL HISTORY: Reason for exam: Amnesia. TECHNIQUE: Magnetic resonance images of the head/brain without intravenous contrast in multiple planes. COMPARISON: Prior head CT from August 07, 2024. FINDINGS: This study is limited secondary to motion artifact. Brain: Moderate nonspecific white matter changes. No mass. No hemorrhage. No acute infarct. The flow voids at the base of the brain are intact. Ventricles: Unremarkable. No ventriculomegaly. Bones/joints: Unremarkable. No acute fracture. Sinuses: Chronic ethmoid sinusitis. No acute sinusitis. Mastoid air cells: Unremarkable as visualized. No mastoid effusion. Orbits: Left lens replacement. IMPRESSION: No evidence of acute intracranial pathology. Electronically signed by: Virgie Chambers MD 08/08/24 02:06 AM
[2024-08-08] MEDS: CALCIUM 600MG + VIT D 400 IU TAB PO SCH (07:55)
[2024-08-08 07:56] LABS: Hematocrit (blood only) 41.2 % (37.0-47.0); Hemoglobin 13.5 g/dl (12.0-16.0); Immature Granulocytes # (auto) 0.02 K/uL (0.01-0.20); Immature Granulocytes % (auto) 0.3 %; Mean Corpuscular Hemoglobin 30.7 pg (25.0-34.0); Mean Corpuscular Volume 93.6 fL (80.0-100.0); Platelet Count 209 K/uL (130-400); RDW Standard Deviation 46.3 fL (36.4-46.3); Red Blood Count 4.40 M/uL (4.20-5.40); White Blood Count 7.25 K/ul (4.8-10.8)
[2024-08-08] MEDS: FAMOTIDINE 20 MG TAB PO SCH (08:02)
[2024-08-08 08:16] LABS: Anion Gap 7 (3-11); Blood Urea Nitrogen 24 mg/dl (6-23); Calcium 8.7 mg/dl (8.6-10.3); Carbon Dioxide 26 mmol/L (21-32); Chloride 108 mmol/L (98-107); Cholesterol 203 mg/dl (0-200); Creatinine Clr Calc Pharmacy 39.4 ml/min; Glucose 78 mg/dl (70-99(Fasting)); HDL Cholesterol 62 mg/dl; Magnesium 2.1 mg/dl (1.7-2.4); Potassium 3.7 mmol/L (3.5-5.1); Sodium 141 mmol/L (136-145); Triglycerides 70 mg/dl (0-150)
[2024-08-08 08:17] LABS: Hemoglobin A1C 5.5 % (4.5-5.6)
[2024-08-08 08:19] VITALS: RESP 20
[2024-08-08 11:10] VITALS: BP 137/74; TEMP 98.4; O2SAT 96
--- NOTE | 2024-08-08 12:29 | Discharge Summary ---
Date of Service August 08, 2024 Admission HPI Per Admitting Provider 79 y/o female with PMH of GERD. glaucoma, Vitamin D deficiency , asthma, osteoporosis, cerebral microvascular disease here due to amnesia. Multiple family members at bedside. Patient with known history of transient global amnesia attack on August last year. All stroke workup including MRI of the brain CTA head and neck were negative at that time. Symptoms started between 10am and and 1pm today. No neuro deficit identify by family members. Patient unable to remember short term memories, similar as last summer. This time symptoms had persisted. Family is worry that know she's unable to remember intermodal dispatcher memories as who's the president. Patient is oriented to person, placed and situation. She lives alone, normal she is able do all her ADLs. Denied any fever, chills, nausea. Denied any dysuria, frequency or urgency. Denied any chest pain, SOB or palpitations. Denied any new mediations. Denied any recent sickness. Denied any headaches. No sick contacts, no recent travels. No visual disturbances. She can identify all her family members Principal Diagnosis See attending documentation Discharge Data Allergies Allergy/AdvReac Type Severity Reaction Status Date / Time chloramphenicol Allergy Intermediate swelling Verified 08/07/24 18:59 latex Allergy Unknown Unknown Verified 08/07/24 18:59 prednisolone AdvReac Severe PRED FORTE Verified 08/07/24 18:59 EYE (CAUSED INCREASED PRESSURE) epinephrine AdvReac Intermediate "makes me Verified 08/07/24 18:59 even more uptight, heart racing" fluticasone AdvReac Intermediate "eyes got Verified 08/07/24 18:59 funny" salmeterol AdvReac Intermediate "eyes got Verified 08/07/24 18:59 funny" Sulfa (Sulfonamide AdvReac Intermediate yeast Verified 08/07/24 18:59 Antibiotics) infection Consultations 08/07/24 21:39 ED Decision to Admit Stat Ordered Studies 08/07/24 17:57 CT head/brain wo con Stat 08/07/24 22:36 MR brain wo con Routine Hospital Course (1) Acute confusion: (2) Forgetfulness: Plan Patient is an 79yo F with PMH of GERD, glaucoma, Vitamin D deficiency, asthma, osteoporosis, cerebral microvascular disease, and known transient global amnesia 1y ago who presented with confusion & apparent anterograde amnesia. Multiple family members were present at bedside to provide initial history and reported symptoms started between 10am and and 1pm on 08/07. Patient was unable to recall short-term memories, kept repeating herself, and argued over current facts (e.g. who is the president). No other neuro deficit noted by family members. Patient was admitted for workup and management of confusion/amnesia. Anterograde amnesia | Acute confusion - Pt did have a similar event in August 2023. Diagnosed with transient global amnesia. Stroke work up form then was reviewed: TTE with bubble negative for shunt; CTA head and neck as well as MRI miguel a were negative for acute abnormality. - Family reported patient was confused since 08/07 morning, repeated herself, asked nonsensical questions, and could not remember what happened earlier or the day before. Family also reported patient was unable to recall long-term memories, but described current facts (e.g. president) not actual older memories (e.g. something from childhood). - On admission, patient exhibited no neuro deficits. She was oriented to person, place, and time and understood the situation/reason for admission. On the morning of discharge, patient was fully lucid and could describe how the event last year felt more severe to her than this one. Reported feeling like she just lost a day but now feels back to normal - HbA1c, fasting lipid panel, B12 level, CRP, ESR were checked; only notable for elevated BUN/Cr of 31.6. MRI brain w/o contrast negative. Neuro consult deferred at this time. Ddx includes delirium (most likely, metabolic) vs TIA, stroke, seizure, TGA - Patient was deemed stable for discharge once back at baseline. Counseled patient on adequate hydration. Recommend outpatient follow-up with neurology and ambulatory EEG monitoring Hx of HSV infections: continue Valacyclovir suppression GERD: continue Pepcid Osteoporosis: continue Prolia DVT prophylaxis: Lovenox Total Time Total Time Spent Total Time Spent (In Minutes): <30 Discharge Plan Discharge Items Patient Disposition: Home - Self-Care Reason For Visit: AMNESIA Discharge Diagnosis: Amnesia Condition on Discharge: Fair Activity: Resume your previous activity Non-emergency contact: Primary Care Provider Call non-emergency contact if: you have any medication questions and your symptoms worsen Follow-up/Referrals: Miguel A Murphy DO [Primary Care Provider] - 08/15/24 11:30 am Diet: Heart Healthy Addtl Attending Provider Instructions: You were admitted to the hospital due to confusion and anterograde amnesia-like symptoms. A thorough work up was done, including advanced imaging studies and labs, all of which were negative. In particular, there is no evidence of stroke. Fortunately, it appears that you are back to your baseline. Given that this is a recurrent episode similar to last summer, it is possible that these changes were secondary to something as simple as dehydration, among other possibilities. Please aim to hit 60+ ounces of fluid intake daily, not including coffee. Your symptoms could also be due to transient seizure activity - for this reason, we recommend considering ambulatory EEG monitoring with your outpatient neurologist. Lastly, while not necessarily contributing to your current presentation, you were noted to have a relatively low vitamin B12 level. We recommend starting a B12 supplement as noted below in your discharge medication list. Please follow up with your primary care doctor and your neurologist as soon as possible to discuss your ongoing care. Pending Studies at Discharge: No Stand-Alone Forms: My [facility] [employer], Smoking Cessation Medications and DC Order Prescriptions: New Pharmacist Discharge Consult [Pharmacist Discharge Med Rec Consult] 1 ea Not Applicable UD PRN (Reason: med rec) 1 Days Qty: 1 0RF mecobalamin (vitamin B12) [B12 Active] 1,000 mcg tablet,chewable 1,000 mcg PO DAILY Qty: 30 0RF Continued famotidine 20 mg tablet 20 mg PO BID Qty: 180 3RF valacyclovir 500 mg tablet 500 mg PO QAM travoprost 0.004 % drops 1 drops OPB QPM calcium carbonate-vitamin D3 500-100 mg-unit tablet,chewable 1 tab PO QAM fluorometholone 0.1 % drops,suspension 1 drp OPL QAM Patient Comments: 1 drp OP LEFT EYE ONCE DAILY; loratadine 10 mg tablet 10 mg PO DAILY PRN (Reason: allergies) Prolia 60 mg/mL syringe 60 mg subcut .[id number] calcium carbonate [Tums] 200 mg calcium (500 mg) tablet,chewable 200 mg PO HS Thera Tears 1 drp OPL BID PRN (Reason: Dry Eyes) brimonidine [Alphagan P] 0.1 % drops 1 drp OPL AMHS Saline Nasal 0.65 % Aerosol,Early 1 - 2 spray INTRANASAL BID PRN (Reason: allergies) ibuprofen 200 mg Tablet 400 mg PO Q6H PRN (Reason: Pain) acetaminophen [Acetaminophen Extra Strength] 500 mg tablet 1,000 mg PO Q8H PRN (Reason: Pain) Discharge Orders: Discharge Order (Routine); Ordered 08/08/24 Ordered By: Abhinav Weber Admission Data Admit Date/Time: 08/07/24 21:22 Attending Provider: Joseph Chatterjee Admit Provider: Kenn Miller Primary Care Provider: Miguel A Murphy Other Providers: Kenn Miller Other Interventions: Discharge Summary Assessment (RN) Last Done: 08/08/24 13:37 Supervising Physician Co-Signing Physician Notes I personally examined the patient and verified all guardado points of history and exam, discussed case, and agree with decision making with Dr Spencer Feeling better, feeling normal. Cannot recall yesterday other than an blurry vague memories, and also has the insight to know that she may even be transposing some memories of her ER visit in March with yesterday, but overall feels much better and much more normal today. Did not have any lateralizing signs or focal deficits. This did happen last summer very similarly as well. Lives alone and seems to function well. On directed que stioning, she drinks coffee in the morning, and then probably about 20 ounces of fluid otherwise throughout the day. Vitals noted, in general she is awake and alert pleasant no distress. She is oriented and has good situational awareness, shows capacity. HEENT normocephalic atraumatic mucous membranes moist. Breathing unlabored no accessory muscle use good effort. Skin without rashes pallor or icterus. Neuro without focal deficits. Labs and diagnostics noted. Transient confusion discussed with patient that the etiology will probably never be abundantly clearlow concern for stroke or TIA type illness given no strokes on MRI, no stroke or TIA nidus on last year's workup, and symptoms not very characteristic of cerebrovascular disease - given her age and overall poor p.o. hydration, as well as transient confusion that seems to resolve without much of a clear factorI do wonder about transient delirium from dehydration. Certainly this would be a very common reason for her to have this presentation, and her prerenal azotemia on her labs would support this, as well as the fact that the episodes seem to happen only in the summer (i.e. when the weather is hotter, probably exacerbating what would be chronic dehydration)the part that is not very consistent with that is how quickly her delirium clears, but certainly this is an occasional exception to the rule. Discussed this as the most likely possibility. Discussed better p.o. hydration with a goal of 60 ounces a day. Continue to follow. - While it seems unlikely, I have seen a few cases of subclinical seizures rece ntly, and we discussed that given the sudden onset and sudden resolution to a degree, it would be reasonable to consider thiswill ask for ambulatory EEG monitoring to be set up. Safe/stable for home. Resident Activity Tracking Resident Involvement: Resident Care Provided Care Provided: Adult Hospital Medicine
--- NOTE | 2024-08-08 13:11 | Billing Data ---
Date of Service August 08, 2024 Coding Level of Care Code 68844 IN/OBS DISCH 30 MIN/LESS
[2024-08-08 13:38] VITALS: PULSE 78
--- NOTE | 2024-08-08 15:00 | Electrocardiogram Report ---
Test Reason : Blood Pressure : */* mmHG Vent. Rate : 81 BPM Atrial Rate : 81 BPM P-R Int : 126 ms QRS Dur : 78 ms QT Int : 376 ms P-R-T Axes : 62 -51 55 degrees QTcB Int : 436 ms Normal sinus rhythm Possible Left atrial enlargement Left axis deviation Possible Anterior infarct , age undetermined Abnormal ECG When compared with ECG of 04-Sep-2023 13:43, Borderline criteria for Anterior infarct are now Present Confirmed by Girma Diaz ([id number]) on 08/08/2024 3:00:38 PM Referred By: REFERRED SELF Confirmed By: Girma Diaz
[2024-08-08] MEDS ORDERED: ENOXAPARIN INJ 30 MG/0.3 ML SYR SQ SCH (21:00)
[2024-08-08] MEDS ORDERED: CALCIUM CARBONATE 500 MG CHEWABLE TAB PO SCH (21:00)
--- NOTE | 2024-08-21 18:37 | Billing Data ---
Date of Service August 07, 2024 Coding Level of Care Code 57018 INT INP/OBS CARE
== END 2024-08-08 14:20 | disposition home or self-care (01) ==
LOC: 2N 16:04 → ED 16:04 → SUATTDRO 21:22 → 2N 22:08